=== PATIENT | male | born 1955 | race Caucasian/White ===

== ENCOUNTER 2016-10-28 18:14 | Emergency (ER) | payer OTHER ==
[~2016-10-28] VITALS: Ht 434.3 cm; Wt 83.9 kg
[~2016-10-28 18:14] MED LIST: AMLODIPINE BESY1 TAB PO; AMOXICILLIN500 MG PO; ANAPROX DS550 MG PO; AUGMENTIN 875875 MG PO; BACTRIM DS 8001 TA1 PO; CATAFLAM50 MG PO; CHOLESTEROL PO; FLEXERIL5 MG PO; FUROSEMIDE40 MG PO; HIGH BP MED; KEFLEX500 M1 PO; LANTUS100 U/ML SC; LEVOFLOXACIN500 MG PO; LISINOPRIL10 MG PO; LISINOPRIL20 MG PO; LOPRESSOR50 MG PO; METFORMIN1000 MG PO; METFORMIN500 MG PO; METOPROLOL SR50 MG PO; Motrin,Rufen800 MG PO; NAPROSYN500 MG PO; NKHM PO; NORCO 10-325 T1 EACH PO; NOVOLOG FLEX100 U/ML SC; PYRIDIUM200 M1 PO; SIMVASTATIN10 MG PO; ULTRAM50 MG PO
[2016-10-28] MEDS ORDERED: CYCLOBENZAPRINE10 MG PO (20:04)
[2016-10-28] MEDS ORDERED: NAPROSYN500 MG PO (20:04)
[2016-12-24] MEDS ORDERED: ASPIRIN CHILDRE81 MG PO (17:56)
[2016-12-24] MEDS ORDERED: CARVEDILOL12.5 MG PO (17:56)
[2016-12-24] MEDS ORDERED: PLAVIX75 M1 PO (17:57)
[2016-12-24] MEDS ORDERED: PRAVACHOL40 MG PO (17:58)
[2016-12-24] MEDS ORDERED: NOVOLIN R100 U/ML SC (17:59)
[2016-12-24] MEDS ORDERED: SANTYL250 U/GM T (18:00)
[2016-12-24] MEDS ORDERED: NOVOLOG FLEX100 U/ML SC (21:18)
== END 2016-10-28 22:44 | disposition home or self-care (01) ==
LOC: ED 18:14
DX: S40.011A Contusion of right shoulder, initial encounter (principal); Z79.4 Long term (current) use of insulin; Z90.49 Acquired absence of other specified parts of digestive tract; W18.09XA Striking against other object with subsequent fall, initial encounter; Y93.89 Activity, other specified; Y92.9 Unspecified place or not applicable; Y99.9 Unspecified external cause status

== ENCOUNTER 2016-11-05 07:12 | Inpatient (IN) | payer OTHER ==
[~2016-11-05] VITALS: Ht 180.3 cm; Wt 77.1 kg
[2016-11-05] VITALS (7 sets, daily range): BP systolic 143–200; BP diastolic 62–122
--- NOTE | ~2016-11-05 | CON ---
[place], [place] REPORT OF CONSULTATION NAME: MARIO ROBERT UNIT #: [id number] ROOM: 425 DOCTOR: YOUNG SONG MD, FACC BIRTHDATE: [birth year] DOS: 11/07/2016 CARDIOLOGY CONSULTATION IMPRESSION: Severe bilateral peripheral arterial disease with tissue damage with the wound on both feet and ischemic related. History of diabetes mellitus and foot infection, cellulitis, hypertension, hypertensive cardiovascular disease, and arthritis. PLAN: Aortobifemoral angiogram with distal runoff and with intervention, revascularization, and wound debridement and wound care. HISTORY OF PRESENT ILLNESS: The patient came through the emergency room for redness in the wounds in both lower extremities with edema and a lot of pain and this all happened recently. The patient has diabetes for several years, hypertension for several years. Initial troponins negative and CPK is abnormal, probably from the tissue damage. PHYSICAL EXAMINATION: EXTREMITIES: Diminished pulses in both pedal and posterior tibial. NECK: No jugular venous distention. LUNGS: No rales heard. HEART: S1 and S2. No gallops. ABDOMEN: Soft. NEUROLOGICAL: The patient is alert, responding well. Mental status normal. VITAL SIGNS: Blood pressure 155/62, heart rate is 75, afebrile. RECTAL: Deferred, unrelated. GENITAL: Deferred, unrelated. LABORATORY DATA: Potassium 3.3, treated with potassium supplements. Renal function is normal, GFR is normal, creatinine is normal. Hemoglobin is 12 and WBC count 11.7. ASSESSMENT AND PLAN: The patient has been on metformin, we will keep here for few days until this contrast and angiogram and the intervention. The patient is on amlodipine, we may change subsequently and continue the nasal insulin for controlling the diabetes. The patient will be on the statin, Plavix, and aspirin. I explained in detail options, procedures, complications, morbidity, mortality explained. The patient opted to go to [facility] for further management of this patient and he is a lot convenient for his family to come and see him. [place], [place] REPORT OF CONSULTATION NAME: MARIO ROBERT UNIT #: [id number] ROOM: 425 DOCTOR: YOUNG SONG MD, FACC BIRTHDATE: [birth year] YOUNG SONG MD CM:CONSTR:REPORT OF CONSULTATION 1648 12/27/16 0830 interface
--- NOTE | ~2016-11-05 | CON ---
[place], [place] REPORT OF CONSULTATION NAME: MARIO ROBERT [facility] #: [id number] UNIT #: [id number] ROOM: 425 DOCTOR: CRISTHIAN POST DPM BIRTHDATE: [birth year] DOS: 11/06/2016 SUBJECTIVE: The patient presents as a 61-year-old white male with complaint of redness and swelling to both feet. The patient has been having problems since 01/2015. PAST MEDICAL HISTORY: The patient has a past medical history of type 2 diabetes, hypertension, arthritis. PAST SURGICAL HISTORY: Amputation of finger, history of hernia repair. SOCIAL HISTORY: Denies alcohol, smoking, or illicit drug use. FAMILY HISTORY: Mother alive, age 80. Father at age 60 for unknown cause of . ALLERGIES: No known allergies. PHYSICAL EXAMINATION: EXTREMITIES: Lower extremity examination, pedal pulses nonpalpable bilateral. There is edema in bilateral foot. There are necrotic changes in bilateral foot with ulcerations with localized erythema and eschar, pregangrenous changes. There is purulent drainage under the loosened nail bed of the right hallux for which culture was ordered after removal of the nail plate which was performed at bedside. Decreased epicritic sensations bilateral. Decreased hair growth. Decreased skin temperature. DIAGNOSTIC DATA: Radiographs of bilateral foot were unremarkable. No signs of bone infection on the radiographs. The patient has pending MRI and arterial vascular to be performed. ASSESSMENT: Infected diabetic ulcers, bilateral foot, severe peripheral vascular disease, perionychia of first right toe, pregangrenous changes. PLAN: Evaluation and management. We removed the right hallux nail plate without any anesthesia due to neuropathy. Cultures were ordered of the drainage. The patient was going immediately for an arterial Doppler bilateral. Ordered Bactroban dressings to be applied to the ulcerations and right hallux daily. Discussed the case via telephone with Dr. Holden. Discussed with Dr. Holden that most likely the patient has severe vascular impairment and will need to be sent and transferred for vascular intervention. I do not believe the patient is a surgical candidate until vascular intervention is performed. We will see the results of the MRI, and if underlying signs of osteomyelitis are present, possible bone biopsy in the future, but in my opinion I think the patient is suffering from severe arterial insufficiency and needs vascular intervention as soon as possible along with continuing the IV antibiotics. Dr. Holden will see the patient tomorrow and review the test results if I do not receive them by the end of today. Thank you for kind consultation. [place], [place] REPORT OF CONSULTATION NAME: MARIO ROBERT UNIT #: [id number] ROOM: [facility] DOCTOR: CRISTHIAN POST DPM BIRTHDATE: [birth year] CRISTHIAN POST DPM CM:CONSTR:REPORT OF CONSULTATION 1216 11/07/16 0131 interface
--- NOTE | ~2016-11-05 | CON ---
[place], [place] REPORT OF CONSULTATION NAME: MARIO ROBERT [facility] #: [id number] UNIT #: [id number] ROOM: 425 DOCTOR: SHALONDA SCHMITT DPMBITA BIRTHDATE: [birth year] DOS: 11/07/2016 SUBJECTIVE: This patient is a 61-year-old male seen at bedside for followup and reevaluation of bilateral foot ulcerations and peripheral arterial disease. The patient had an MRI done yesterday, which showed acute osteomyelitis of the distal phalanx. No drainable abscess or fluid collection was shown. MRI is currently pending for the left foot. PHYSICAL EXAMINATION: VITAL SIGNS: Temperature 98.7, pulse rate is 70, respiratory rate of 18, blood pressure 136/72. VASCULAR: DP and PT pulses are nonpalpable. CFT appeared to be within normal limits, +1 pitting edema to bilateral lower extremities. DERMATOLOGIC: The patient has stable eschars to the distal tip of his right first and second digits as well as sub-fifth underneath the fifth metatarsal head bilateral as well as a stable healed decubitus ulcer noted on the left. He also has a sub-first metatarsal ulcer noted on the left foot. No signs of soft tissue emphysema. No soft tissue crepitation is noted. Mild periwound erythema is noted around his ulcerations. His right hallux nail has been removed as well. NEUROLOGIC: Decreased protective sensation. ORTHOPEDICS: Decreased muscle strength bilateral. Negative Homans', negative calf pain. IMAGING: As stated previously, MRI shows ulceration with acute osteomyelitis of the distal phalanx. Arterial ultrasound showed evidence of mild bilateral inflow disease and Doppler waveforms indicate severe bilateral distal atherosclerosis. Again, MRI is currently pending for the left foot. ASSESSMENT: 1. Diabetes with neuropathy. 2. Peripheral arterial disease. 3. Ulcerations to the bilateral feet. 4. Edema. TREATMENT PLANS AND RECOMMENDATIONS: Findings as well as prognosis was discussed in detail with the patient. All questions were answered to his apparent satisfaction. I spoke with the resident doctor under Dr. Vaughn earlier. He states that the patient is being transferred to [facility] for vascular assessment. There is no abscess right now that needs emergent I and D. The patient will most likely need thorough debridement of ulcerations as well as a possible partial distal amputation of his right hallux as well as debridement of his left foot ulceration in the near future once vascularly optimized. This was discussed in detail with the patient at the bedside. The patient notes understanding. Again, all questions were answered to his apparent satisfaction. We will continue with local wound care and followup with him once he has been revascularized. [place], [place] REPORT OF CONSULTATION NAME: MARIO ROBERT UNIT #: [id number] ROOM: 425 DOCTOR: BITA LIZ III, DPM BIRTHDATE: [birth year] BITA LIZ III, DPM CM:CONSTR:REPORT OF CONSULTATION 1216 11/08/16 0457 interface
[~2016-11-05 07:12] MED LIST changes: +CYCLOBENZAPRINE10 MG PO
[2016-11-05 08:48] LABS: BASO % 0.2 % (0.0-1.0); EOS # 0.1 10*3/uL (0.0-0.4); EOS % 0.3 % (1.0-4.0); HEMATOCRIT 43.5 % (42.0-52.0); HEMOGLOBIN 14.9 g/dl (14.0-18.0); IG # 0.1 10*3/uL (0.0-0.1); LYMPH # 0.9 10*3/uL (1.3-4.4); LYMPH % 4.9 % (27.0-41.0); MEAN CELL VOLUME 89.5 fl (80.0-94.0); MEAN CORPUSCULAR HGB 30.7 pg (27.0-31.0); MEAN CORPUSCULAR HGB CONC 34.3 g/dl (33.0-37.0); MEAN PLATELET VOLUME 11.7 fl (9.6-12.3); MONO # 0.9 10*3/uL (0.1-1.0); MONO % 4.9 % (3.0-9.0); NEUT # 16.3 10*3/uL (2.3-7.9); NEUT % 88.9 % (47.0-73.0); PLATELET COUNT AUTOMATED 353 10*3/uL (130-400); RED BLOOD COUNT 4.86 10*6/uL (4.50-5.90); RED CELL DISTRI WIDTH 11.9 % (0-14.5); WHITE BLOOD COUNT 18.3 10*3/uL (4.8-10.8)
[2016-11-05 09:23] LABS: BUN 9 mg/dl (7-24); CARBON DIOXIDE 28 mmol/L (21-32); CHLORIDE 96 mmol/L (98-107); EST GLOM FILT AFRICAN AMERICAN > 60 ml/min; GLUCOSE 347 mg/dL (65-99); POTASSIUM 4.1 mmol/L (3.5-5.1); SODIUM 137 mmol/L (136-145)
[2016-11-05 12:50] LABS: CPK 128 U/L (39-308)
[2016-11-05 12:54] LABS: CKMB 11.6 ng/ml (0.5-3.6); TROPONIN I < 0.015 ng/ml (<0.5)
[2016-11-05 19:07] LABS: TROPONIN I 0.016 ng/ml (<0.5)
[2016-11-05 19:14] LABS: CKMB 6.8 ng/ml (0.5-3.6)
[2016-11-06] VITALS: BP 118/61
[2016-11-06 00:30] LABS: BILIRUBIN NEGATIVE (NEGATIVE); BLOOD NEGATIVE (NEGATIVE); CLARITY CLEAR (CLEAR); COLOR YELLOW (YELLOW); GLUCOSE 3+ (NEGATIVE); KETONE 1+ (NEGATIVE); LEUKO ESTERASE NEGATIVE (NEGATIVE); NITRITE NEGATIVE (NEGATIVE); PH 6.5 (5.0-9.0); PROTEIN NEGATIVE (NEGATIVE)
[2016-11-06 00:36] LABS: YEAST TRACE
[2016-11-06 00:49] LABS: CKMB 4.4 ng/ml (0.5-3.6); TROPONIN I 0.015 ng/ml (<0.5)
[2016-11-06 08:03] VITALS: BP 138/64
[2016-11-06 08:14] LABS: BASO # 0.1 10*3/uL (0.0-0.1); BASO % 0.4 % (0.0-1.0); EOS # 0.1 10*3/uL (0.0-0.4); EOS % 0.9 % (1.0-4.0); HEMATOCRIT 34.6 % (42.0-52.0); HEMOGLOBIN 11.9 g/dl (14.0-18.0); IG # 0.1 10*3/uL (0.0-0.1); LYMPH # 1.1 10*3/uL (1.3-4.4); LYMPH % 7.5 % (27.0-41.0); MEAN CELL VOLUME 88.7 fl (80.0-94.0); MEAN CORPUSCULAR HGB 30.5 pg (27.0-31.0); MEAN CORPUSCULAR HGB CONC 34.4 g/dl (33.0-37.0); MEAN PLATELET VOLUME 10.8 fl (9.6-12.3); MONO # 1.3 10*3/uL (0.1-1.0); MONO % 8.7 % (3.0-9.0); NEUT # 11.7 10*3/uL (2.3-7.9); NEUT % 81.8 % (47.0-73.0); PLATELET COUNT AUTOMATED 259 10*3/uL (130-400); RED CELL DISTRI WIDTH 11.9 % (0-14.5); WHITE BLOOD COUNT 14.3 10*3/uL (4.8-10.8)
[2016-11-06 08:30] LABS: ALBUMIN 2.3 gm/dl (3.1-4.5); ALKALINE PHOSPHATASE 72 U/L (45-117); BILIRUBIN, TOTAL 0.4 mg/dl (0.2-1.0); BUN 7 mg/dl (7-24); CARBON DIOXIDE 24 mmol/L (21-32); CHLORIDE 108 mmol/L (98-107); EST GLOM FILT AFRICAN AMERICAN > 60 ml/min; GLUCOSE 94 mg/dL (65-99); MAGNESIUM 2.1 mg/dL (1.5-2.1); PHOSPHOROUS 2.4 mg/dL (2.5-4.9); POTASSIUM 3.6 mmol/L (3.5-5.1); SGOT/AST 11 IU/L (3-35); SGPT/ALT 14 U/L (12-78); SODIUM 140 mmol/L (136-145); TOTAL PROTEIN 5.9 gm/dL (6.4-8.2)
[2016-11-06 12:00] VITALS: BP 149/62
[2016-11-06 16:00] VITALS: BP 118/67
[2016-11-06 20:00] VITALS: BP 116/66
[2016-11-07] VITALS: BP 165/66
[2016-11-07 07:30] VITALS: BP 136/72
[2016-11-07 07:30] LABS: BASO # 0.1 10*3/uL (0.0-0.1); BASO % 0.6 % (0.0-1.0); EOS # 0.2 10*3/uL (0.0-0.4); EOS % 1.9 % (1.0-4.0); HEMATOCRIT 35.2 % (42.0-52.0); IG # 0.1 10*3/uL (0.0-0.1); LYMPH # 1.4 10*3/uL (1.3-4.4); LYMPH % 12.1 % (27.0-41.0); MEAN CELL VOLUME 88.9 fl (80.0-94.0); MEAN CORPUSCULAR HGB 30.3 pg (27.0-31.0); MEAN CORPUSCULAR HGB CONC 34.1 g/dl (33.0-37.0); MEAN PLATELET VOLUME 10.8 fl (9.6-12.3); MONO # 0.9 10*3/uL (0.1-1.0); MONO % 7.6 % (3.0-9.0); NEUT % 76.9 % (47.0-73.0); PLATELET COUNT AUTOMATED 261 10*3/uL (130-400); RED BLOOD COUNT 3.96 10*6/uL (4.50-5.90); RED CELL DISTRI WIDTH 11.8 % (0-14.5); WHITE BLOOD COUNT 11.7 10*3/uL (4.8-10.8)
[2016-11-07 08:08] LABS: BUN 7 mg/dl (7-24); CARBON DIOXIDE 24 mmol/L (21-32); CHLORIDE 108 mmol/L (98-107); EST GLOM FILT AFRICAN AMERICAN > 60 ml/min; GLUCOSE 80 mg/dL (65-99); POTASSIUM 3.3 mmol/L (3.5-5.1); SODIUM 142 mmol/L (136-145)
[2016-11-07 12:00] VITALS: BP 155/62
[2016-11-07 16:00] VITALS: BP 154/68
[2016-12-24] MEDS ORDERED: ASPIRIN CHILDRE81 MG PO (17:56)
[2016-12-24] MEDS ORDERED: CARVEDILOL12.5 MG PO (17:56)
[2016-12-24] MEDS ORDERED: PLAVIX75 M1 PO (17:57)
[2016-12-24] MEDS ORDERED: PRAVACHOL40 MG PO (17:58)
[2016-12-24] MEDS ORDERED: NOVOLIN R100 U/ML SC (17:59)
[2016-12-24] MEDS ORDERED: SANTYL250 U/GM T (18:00)
[2016-12-24] MEDS ORDERED: NOVOLOG FLEX100 U/ML SC (21:18)
== END 2016-11-07 19:01 | disposition short-term general hospital (02) | DRG 871 ==
LOC: ED 07:12 → EDHOLD 09:42 → 4E 09:42 → EDHOLD 10:00 → 4E 10:25
PROVIDERS: Emergency Medicine; Family Medicine; Internal Medicine
DX: A41.9 Sepsis, unspecified organism (principal); E43 Unspecified severe protein-calorie malnutrition; E11.52 Type 2 diabetes mellitus with diabetic peripheral angiopathy with gangrene; L03.116 Cellulitis of left lower limb; L03.115 Cellulitis of right lower limb; M86.171 Other acute osteomyelitis, right ankle and foot; E11.628 Type 2 diabetes mellitus with other skin complications; E11.65 Type 2 diabetes mellitus with hyperglycemia; I10 Essential (primary) hypertension; M19.90 Unspecified osteoarthritis, unspecified site; E11.69 Type 2 diabetes mellitus with other specified complication; B35.1 Tinea unguium; L03.031 Cellulitis of right toe; L97.529 Non-pressure chronic ulcer of other part of left foot with unspecified severity; L97.519 Non-pressure chronic ulcer of other part of right foot with unspecified severity; E11.40 Type 2 diabetes mellitus with diabetic neuropathy, unspecified; Z98.890 Other specified postprocedural states; Z89.029 Acquired absence of unspecified finger(s); Z79.899 Other long term (current) drug therapy; Z79.4 Long term (current) use of insulin; Z82.49 Family history of ischemic heart disease and other diseases of the circulatory system; Z83.3 Family history of diabetes mellitus; Z72.89 Other problems related to lifestyle; Z68.25 Body mass index [BMI] 25.0-25.9, adult

== ENCOUNTER 2017-01-14 10:45 | Inpatient (IN) | payer SELFPAY ==
[~2017-01-14] VITALS: Ht 180.3 cm; Wt 70.5 kg
--- NOTE | ~2017-01-14 | PR ---
[place], [place] PROGRESS NOTE [id number] UNIT #: [id number] ROOM: 410 DOCTOR: RODOLFO GROSSMAN DPM BIRTHDATE: [birth year] DOS: 01/18/2017 SUBJECTIVE: This patient is seen status post debridement, bone biopsy, left foot as well as repair of laceration, plantar left great toe. He has no complaints at this time. OBJECTIVE: Upon removal of the dressing and packing, the incision site is well coapted in the area of the laceration. Minimal edema, no erythema or drainage. The left heel area is clean and granular with no signs of purulent drainage or malodor. No significant erythema or increased temperature. ASSESSMENT: Status post laceration repair, left hallux and debridement and bone biopsy, left heel. PLAN: Packing and dressing is changed. Continue with current treatment plan of antibiotics and wound care. Followup tomorrow with Dr. Solano. RODOLFO GROSSMAN DPM CM:PNTRANS [id number] RODOLFO GROSSMAN DPM 01/19/17 0102 interface
--- NOTE | ~2017-01-14 | PR ---
[place], [place] PROGRESS NOTE [id number] UNIT #: [id number] ROOM: 410 DOCTOR: CRISTHIAN POST DPM BIRTHDATE: [birth year] DOS: 01/17/2017 SUBJECTIVE: The patient presents postop left foot. The patient is resting comfortably in bed without discomfort. OBJECTIVE: Upon removal of the dressing and packing, left foot, the incision site to the laceration site, plantar left hallux is well coapted with sutures intact. No signs of purulent drainage or foul odor. The left heel biopsy site packing was removed and there were no signs of purulent drainage or foul odor noted. The ulceration extends to the calcaneus. ASSESSMENT: Postop laceration primary repair, left hallux and debridement and bone biopsy, left heel. PLAN: Change dressing applied half inch plain packing with wet-to-dry dressing to the left heel and Xeroform with gauze dressing to the left hallux incision site. Orders were written to continue daily. The patient will be seen tomorrow for followup with Dr. Ledezma. Continue antibiotics per Infectious Disease. CRISTHIAN POST DPM CM:LASHAWN [id number] CRISTHIAN POST DPM 01/18/17 0232 interface
--- NOTE | ~2017-01-14 | CON ---
[place], [place] REPORT OF CONSULTATION NAME: MARIO ROBERT [facility] #: [id number] UNIT #: [id number] ROOM: 410 DOCTOR: CRISTHIAN POST DPM BIRTHDATE: [birth year] DOS: 01/15/2017 SUBJECTIVE: The patient is a 61-year-old male with a chief complaint of ulcerations of both feet and a laceration on the bottom of the left great toe. The patient was brought to the ED after suffering a fall. The patient has been in the [facility] for wound care and IV antibiotics. PAST MEDICAL HISTORY: Normocytic normochromic anemia, osteomyelitis, PVD. PAST SURGICAL HISTORY: Amputation of finger, hernia repair, periumbilical vascular dilatation. SOCIAL HISTORY: Denies smoking, alcohol, or illicit drug use. FAMILY HISTORY: Mother alive, history of diabetes, CAD, . Father unknown cause of at age 64, . PHYSICAL EXAMINATION: EXTREMITIES: Lower extremity examination: Pedal pulses diminished, but palpable. Decreased hair growth bilateral. There are ulcerations; fifth MPJ bilateral, plantar first right MPJ, and left heel. The ulceration lateral fifth left MPJ had previous apparent resection of the fifth metatarsal and it is granulating well, much improved from previous exam. The ulceration plantar first left MPJ is partial thickness. There is a large ulceration approximately 5 cm in diameter to the plantar left heel, which is full thickness through subcutaneous tissue level with localized erythema, no signs of purulent drainage. No signs of acute abscess. The ulceration may extend to bone. There is also a laceration approximately 2.5 cm in length to the plantar left great toe sulcus, is full thickness into the subcutaneous tissue level. Does not appear to have exposed tendon. No signs of infection to that area at this time. DIAGNOSTIC DATA: Results of the radiographs reveal the previously noted osteomyelitis fifth left metatarsal head being removed with bone resection osteotomy. There is erosion of the inferior surface of the calcaneus suggestive of osteomyelitis, which would clinically correlate with the patient's ulceration. ASSESSMENT: Probable osteomyelitis, left calcaneus; peripheral vascular disease; ulcerations; bilateral lower extremity laceration, left hallux. PLAN: Evaluation and management discussed the case with Infectious Disease. He was also in the room. Discussed the case via telephone with Dr. Holden. Reviewed the patient's previous medical records. The patient will be scheduled for repair of laceration of plantar left hallux and debridement of the left heel with bone biopsy, left calcaneus by Dr. Holden tomorrow. The patient will be n.p.o. after midnight, order Bactroban dressings to ulcerations of both lower extremities. We will hold the Lovenox for surgery for tomorrow and the patient will be seen for surgical intervention by Dr. Holden tomorrow. Continue antibiotics per Infectious Disease. [place], [place] REPORT OF CONSULTATION NAME: MARIO ROBERT Isaias UNIT #: [id number] ROOM: 410 DOCTOR: CRISTHIAN POST DPM BIRTHDATE: [birth year] CRISTHIAN POST DPM CM:CONSTR:REPORT OF CONSULTATION 1301 01/15/17 2235 interface
--- NOTE | ~2017-01-14 | O ---
[place], [place] OPERATIVE NOTE NAME: MARIO ROBERT UNIT #: [id number] ROOM: 410 DOCTOR: FORREST LIZ III, DPM BIRTHDATE: [birth year] DOS: 01/16/2017 TIME: 6 p.m. SURGEON: Dr. Forrest Liz. [employer]: None. ANESTHESIA: Monitored anesthesia care. PREOPERATIVE DIAGNOSES: 1. Laceration left great toe. 2. Osteomyelitis, left heel. POSTOPERATIVE DIAGNOSES: 1. Laceration left great toe. 2. Osteomyelitis, left heel. PROCEDURE: 1. Primary closure of laceration. 2. Bone debridement biopsy, left heel. HEMOSTASIS: None. ESTIMATED BLOOD LOSS: 10 mL. MATERIALS: Four inch packing was applied to the wound to the heel at the conclusion of the case. INJECTABLES: Approximately 10 mL and 0.5% Marcaine plain was injected in an angle block type fashion at the conclusion of the case. FINDINGS: Consistent with preoperative diagnosis. The patient had an inferior heel wound that probed directly to bone. Mobilized necrotic tissue was debrided and removed. Bone was debrided and biopsied. He also had a deep laceration to the sulcus of the first digit plantarly. This was closed primarily after irrigation was performed. Findings consistent with preoperative diagnosis. COMPLICATIONS: None. HISTORY OF PRESENT ILLNESS: This is a middle-aged male well-known to us on previous admission. He presented to the Emergency Room with necrotic heel wound as well as a laceration to his left great toe. The patient was unsure of laceration occurred. The patient has had a heel laceration for some time. They treated in outpatient setting with IV antibiotics and was most recently revascularized ____. We discussed the options with the patient. They felt that it was in the patient's best interest to debride his calcaneal wound and take cultures as well as biopsies in order to guide antibiotic therapy. It was also appropriate to irrigate and flush and close this laceration. The patient was in agreement with plan. All risks, benefits, complications, procedures, [place], [place] OPERATIVE NOTE NAME: MARIO ROBERT UNIT #: [id number] ROOM: 410 DOCTOR: FORREST LIZ III, DPM BIRTHDATE: [birth year] alternatives were discussed and all questions were answered to his apparent satisfaction. The pre, debbi, postoperative course was discussed as well. PHYSICAL EXAMINATION: VASCULAR: DP and PT pulses are barely palpable, CFT within normal limits, mild edema to the inferior heel and left great toe. DERMATOLOGY: The patient has a full-thickness laceration appreciated into the sulcus of his first digit plantarly. Full-thickness ____ subcutaneous tissue. There is sign of infection to the laceration. He has a full-thickness wound appreciated to the plantar aspect of his left heel and it probed directly to bone. Localized necrotic tissue is appreciated. NEUROLOGIC: Decreased protective sensation. ORTHOPEDIC: Muscle strength is maintained. Negative Homans', negative calf pain. PROCEDURE: The patient was brought to the operating room, laid on table in the supine position, but was prepped and draped in the usual sterile fashion. Pneumatic compression device was placed on the contralateral limb for DVT prophylaxis. Antibiotics were administered. The patient was on antibiotics on the floor, therefore no antibiotics were administered preoperatively. Our attention was directed to the laceration in the plantar sulcus of his left great toe, where again a full-thickness wound was appreciated and extended to and through subcutaneous tissue. Localized debridement was performed. Wound margins were well approximated once the wound was debrided. Copious irrigation was performed and then the wound margin was reapproximated with 2-0 nylon in a horizontal mattress type fashion. There was minimal tension on the soft tissues. We then directed our attention to the inferior aspect of the left heel where again a necrotic heel wound was appreciated. It probed directly to bone. Deep soft tissue cultures were obtained. Bone was also debrided and biopsied from the anterior heel corresponding with osteomyelitic changes on x-ray exam. Copious irrigation was then performed. The wound was then packed open and a dry dressing now was then applied. Ankle block was performed and approximately 10 mL of 0.5% Marcaine plain. The patient tolerated the procedure well and left the operating room with neurovascular status intact and vital signs stable. Prognosis for healing is fair. He will be readmitted back to the floor for Infectious Disease as well as Medicine followup. [place], [place] OPERATIVE NOTE NAME: JAKOBMARIO R UNIT #: [id number] ROOM: [facility] DOCTOR: FORREST LIZ III, DPM BIRTHDATE: [birth year] FORREST LIZ III, DPM CM:OPRECORD:OPERATIVE NOTE 1804 25 FORREST LIZ III, DPM 01/16/17 2346 interface
[~2017-01-14 10:45] MED LIST changes: +ASPIRIN CHILDRE81 MG PO; +CARVEDILOL12.5 MG PO; +NOVOLIN R100 U/ML SC; +PLAVIX75 M1 PO; +PRAVACHOL40 MG PO; +SANTYL250 U/GM T
[2017-01-14 10:59] VITALS: BP 168/79
[2017-01-14 11:50] LABS: BASO # 0.1 10*3/uL (0.0-0.1); BASO % 0.6 % (0.0-1.0); EOS # 0.1 10*3/uL (0.0-0.4); EOS % 0.6 % (1.0-4.0); HEMATOCRIT 36.8 % (42.0-52.0); HEMOGLOBIN 12.2 g/dl (14.0-18.0); LYMPH # 1.4 10*3/uL (1.3-4.4); LYMPH % 12.7 % (27.0-41.0); MEAN CELL VOLUME 85.8 fl (80.0-94.0); MEAN CORPUSCULAR HGB 28.4 pg (27.0-31.0); MEAN CORPUSCULAR HGB CONC 33.2 g/dl (33.0-37.0); MEAN PLATELET VOLUME 11.2 fl (9.6-12.3); MONO # 0.5 10*3/uL (0.1-1.0); MONO % 4.9 % (3.0-9.0); NEUT % 80.9 % (47.0-73.0); PLATELET COUNT AUTOMATED 325 10*3/uL (130-400); RED BLOOD COUNT 4.29 10*6/uL (4.50-5.90); RED CELL DISTRI WIDTH 13.7 % (0-14.5); WHITE BLOOD COUNT 11.1 10*3/uL (4.8-10.8)
[2017-01-14 12:06] LABS: ALBUMIN 3.5 gm/dl (3.1-4.5); ALKALINE PHOSPHATASE 81 U/L (45-117); BILIRUBIN, TOTAL 0.5 mg/dl (0.2-1.0); BUN 24 mg/dl (7-24); CARBON DIOXIDE 21 mmol/L (21-32); CHLORIDE 101 mmol/L (98-107); EST GLOM FILT AFRICAN AMERICAN > 60 ml/min; GLUCOSE 144 mg/dL (65-99); POTASSIUM 4.1 mmol/L (3.5-5.1); SGOT/AST 12 IU/L (3-35); SGPT/ALT 14 U/L (12-78); SODIUM 140 mmol/L (136-145)
[2017-01-14] MEDS ORDERED: DULCOLAX10 M1 RC (12:54)
[2017-01-14] MEDS ORDERED: GLUTOSE 1515 GM PO (12:55)
[2017-01-14] MEDS ORDERED: ZOFRAN4 MG PO (12:57)
[2017-01-14] MEDS ORDERED: MILK OF MA400 MG/5 M PO (12:57)
[2017-01-14 13:18] VITALS: BP 161/87
[2017-01-14 15:00] VITALS: BP 168/78
[2017-01-14 16:00] VITALS: BP 168/78
[2017-01-14 20:00] VITALS: BP 154/64
[2017-01-15] VITALS: BP 150/80
[2017-01-15 01:51] LABS: BILIRUBIN 1+ (NEGATIVE); BLOOD NEGATIVE (NEGATIVE); CLARITY CLEAR (CLEAR); COLOR YELLOW (YELLOW); GLUCOSE NEGATIVE (NEGATIVE); KETONE 2+ (NEGATIVE); LEUKO ESTERASE NEGATIVE (NEGATIVE); NITRITE NEGATIVE (NEGATIVE); PH 5.5 (5.0-9.0); PROTEIN TRACE (NEGATIVE); SPECIFIC GRAVITY >= 1.030 (1.005-1.030); UROBILINOGEN 0.2 E.U./dl (0.2-1.0)
[2017-01-15 02:05] LABS: HYALINE CAST 20-25; URINE REFLEX COMMENT NO (NO); WBC 0-2 wbc/hpf (0-5)
[2017-01-15 06:37] LABS: BASO # 0.1 10*3/uL (0.0-0.1); BASO % 0.6 % (0.0-1.0); EOS # 0.1 10*3/uL (0.0-0.4); EOS % 1.2 % (1.0-4.0); HEMATOCRIT 32.9 % (42.0-52.0); HEMOGLOBIN 10.7 g/dl (14.0-18.0); IG # 0.1 10*3/uL (0.0-0.1); LYMPH # 1.1 10*3/uL (1.3-4.4); LYMPH % 10.6 % (27.0-41.0); MEAN CELL VOLUME 86.6 fl (80.0-94.0); MEAN CORPUSCULAR HGB 28.2 pg (27.0-31.0); MEAN CORPUSCULAR HGB CONC 32.5 g/dl (33.0-37.0); MEAN PLATELET VOLUME 10.9 fl (9.6-12.3); MONO # 0.9 10*3/uL (0.1-1.0); MONO % 8.1 % (3.0-9.0); NEUT # 8.4 10*3/uL (2.3-7.9); PLATELET COUNT AUTOMATED 307 10*3/uL (130-400); RED CELL DISTRI WIDTH 13.8 % (0-14.5); WHITE BLOOD COUNT 10.7 10*3/uL (4.8-10.8)
[2017-01-15 07:01] LABS: HEMOGLOBIN A1c 6.4 % (4.8-5.6)
[2017-01-15 07:16] LABS: FOLIC ACID 4.27 ng/mL (>5.38)
[2017-01-15 07:20] LABS: INTERNATIONAL NORM RATIO 1.1 (2.0-3.5); PROTHROMBIN TIME 11.4 SECONDS (9.0-12.4)
[2017-01-15 07:30] LABS: ALBUMIN 3.2 gm/dl (3.1-4.5); ALKALINE PHOSPHATASE 68 U/L (45-117); BILIRUBIN, TOTAL 0.4 mg/dl (0.2-1.0); BUN 17 mg/dl (7-24); CARBON DIOXIDE 27 mmol/L (21-32); CHLORIDE 110 mmol/L (98-107); CHOLESTEROL 98 mg/dL (<200); EST GLOM FILT AFRICAN AMERICAN > 60 ml/min; HDL CHOLESTEROL 44 mg/dl (40-60); LDL CHOLESTEROL 36 mg/dL (9-159); MAGNESIUM 2.2 mg/dL (1.5-2.1); POTASSIUM 3.5 mmol/L (3.5-5.1); SGOT/AST 8 IU/L (3-35); SGPT/ALT 15 U/L (12-78); SODIUM 146 mmol/L (136-145); TRIGLYCERIDES 91 mg/dl (<150); VLDL CHOLESTEROL 18 mg/dL (6-40)
[2017-01-15 07:38] LABS: GLUCOSE 44 mg/dL (65-99)
[2017-01-15 08:00] VITALS: BP 190/76
[2017-01-15 16:00] VITALS: BP 194/91
[2017-01-15 20:00] VITALS: BP 152/63
[2017-01-16] VITALS (13 sets, daily range): BP systolic 89–190; BP diastolic 43–90
[2017-01-16 07:25] LABS: BASO # 0.1 10*3/uL (0.0-0.1); BASO % 0.6 % (0.0-1.0); EOS # 0.2 10*3/uL (0.0-0.4); EOS % 2.3 % (1.0-4.0); HEMATOCRIT 31.5 % (42.0-52.0); HEMOGLOBIN 10.1 g/dl (14.0-18.0); LYMPH # 1.3 10*3/uL (1.3-4.4); LYMPH % 16.9 % (27.0-41.0); MEAN CELL VOLUME 87.3 fl (80.0-94.0); MEAN CORPUSCULAR HGB CONC 32.1 g/dl (33.0-37.0); MONO # 0.6 10*3/uL (0.1-1.0); MONO % 8.2 % (3.0-9.0); NEUT # 5.5 10*3/uL (2.3-7.9); NEUT % 71.6 % (47.0-73.0); PLATELET COUNT AUTOMATED 242 10*3/uL (130-400); RED BLOOD COUNT 3.61 10*6/uL (4.50-5.90); RED CELL DISTRI WIDTH 13.8 % (0-14.5); WHITE BLOOD COUNT 7.7 10*3/uL (4.8-10.8)
[2017-01-16 07:32] LABS: BUN 11 mg/dl (7-24); CARBON DIOXIDE 24 mmol/L (21-32); CHLORIDE 112 mmol/L (98-107); EST GLOM FILT AFRICAN AMERICAN > 60 ml/min; GLUCOSE 83 mg/dL (65-99); POTASSIUM 3.3 mmol/L (3.5-5.1); SODIUM 147 mmol/L (136-145)
[2017-01-17] VITALS: BP 144/56
[2017-01-17 07:31] LABS: BUN 8 mg/dl (7-24); CARBON DIOXIDE 24 mmol/L (21-32); CHLORIDE 110 mmol/L (98-107); GLUCOSE 88 mg/dL (65-99); POTASSIUM 3.7 mmol/L (3.5-5.1); SODIUM 144 mmol/L (136-145)
[2017-01-17 07:33] LABS: EST GLOM FILT AFRICAN AMERICAN > 60 ml/min
[2017-01-17 08:00] VITALS: BP 166/75
[2017-01-17 12:00] VITALS: BP 170/69
[2017-01-17 16:00] VITALS: BP 194/86
[2017-01-17 20:43] VITALS: BP 192/82
[2017-01-18] VITALS: BP 157/75
[2017-01-18 08:00] VITALS: BP 136/88
[2017-01-18 12:00] VITALS: BP 108/55
[2017-01-18] MEDS ORDERED: AMLODIPINE BESYL5 MG PO (14:29)
[2017-01-18] MEDS ORDERED: LAMISIL250 MG PO (14:29)
[2017-01-18] MEDS ORDERED: LISINOPRIL10 M1 PO (14:29)
[2017-01-18] MEDS ORDERED: CIPRO500 MG PO (14:53)
== END 2017-01-18 17:37 | disposition other institution (70) | DRG 629 ==
LOC: ED 10:45 → EDHOLD 14:21 → 4E 14:21
PROVIDERS: Emergency Medicine; Internal Medicine; Podiatrist Foot & Ankle Surgery; Student in an Organized Health Care Education/Training Program
PROC: 0HQNXZZ Repair Left Foot Skin, External Approach (ICD-10-PCS; principal; 2017-01-16)
PROC: 0QBM0ZZ Excision of Left Tarsal, Open Approach (ICD-10-PCS; principal; 2017-01-16)
DX: E11.69 Type 2 diabetes mellitus with other specified complication (principal); M86.172 Other acute osteomyelitis, left ankle and foot; N17.0 Acute kidney failure with tubular necrosis; E11.621 Type 2 diabetes mellitus with foot ulcer; E87.0 Hyperosmolality and hypernatremia; I10 Essential (primary) hypertension; D64.9 Anemia, unspecified; B35.1 Tinea unguium; L97.424 Non-pressure chronic ulcer of left heel and midfoot with necrosis of bone; E11.51 Type 2 diabetes mellitus with diabetic peripheral angiopathy without gangrene; M19.90 Unspecified osteoarthritis, unspecified site; E87.6 Hypokalemia; E55.9 Vitamin D deficiency, unspecified; E53.8 Deficiency of other specified B group vitamins; E83.39 Other disorders of phosphorus metabolism; E83.41 Hypermagnesemia; S91.112A Laceration without foreign body of left great toe without damage to nail, initial encounter; W19.XXXA Unspecified fall, initial encounter; Y93.89 Activity, other specified; Z79.4 Long term (current) use of insulin; Z79.82 Long term (current) use of aspirin; Z79.02 Long term (current) use of antithrombotics/antiplatelets; Z79.899 Other long term (current) drug therapy; Y92.89 Other specified places as the place of occurrence of the external cause; Y99.8 Other external cause status; Z82.49 Family history of ischemic heart disease and other diseases of the circulatory system; Z83.3 Family history of diabetes mellitus

== ENCOUNTER 2017-01-20 08:47 | Inpatient (IN) | payer SELFPAY ==
[~2017-01-20] VITALS: Ht 180.3 cm; Wt 74.0 kg
[~2017-01-20 08:47] MED LIST changes: +AMLODIPINE BESYL5 MG PO; +CIPRO500 MG PO; +DULCOLAX10 M1 RC; +GLUTOSE 1515 GM PO; +LAMISIL250 MG PO; +LISINOPRIL10 M1 PO; +MILK OF MA400 MG/5 M PO; +ZOFRAN4 MG PO
[2017-01-20 08:51] VITALS: BP 121/70
[2017-01-20] MEDS ORDERED: LAMISIL250 MG PO (09:06)
[2017-01-20 09:29] LABS: BASO # 0.1 10*3/uL (0.0-0.1); BASO % 0.6 % (0.0-1.0); EOS # 0.2 10*3/uL (0.0-0.4); EOS % 1.9 % (1.0-4.0); HEMATOCRIT 30.7 % (42.0-52.0); HEMOGLOBIN 10.2 g/dl (14.0-18.0); LYMPH # 1.2 10*3/uL (1.3-4.4); LYMPH % 12.3 % (27.0-41.0); MEAN CELL VOLUME 85.8 fl (80.0-94.0); MEAN CORPUSCULAR HGB 28.5 pg (27.0-31.0); MEAN CORPUSCULAR HGB CONC 33.2 g/dl (33.0-37.0); MEAN PLATELET VOLUME 11.3 fl (9.6-12.3); MONO # 0.5 10*3/uL (0.1-1.0); MONO % 4.8 % (3.0-9.0); NEUT # 7.9 10*3/uL (2.3-7.9); PLATELET COUNT AUTOMATED 248 10*3/uL (130-400); RED BLOOD COUNT 3.58 10*6/uL (4.50-5.90); RED CELL DISTRI WIDTH 13.9 % (0-14.5); WHITE BLOOD COUNT 9.9 10*3/uL (4.8-10.8)
[2017-01-20 09:38] LABS: INTERNATIONAL NORM RATIO 1.1 (2.0-3.5); PROTHROMBIN TIME 11.8 SECONDS (9.0-12.4)
[2017-01-20 09:45] LABS: ALBUMIN 2.7 gm/dl (3.1-4.5); ALKALINE PHOSPHATASE 63 U/L (45-117); BILIRUBIN, TOTAL 0.4 mg/dl (0.2-1.0); BUN 9 mg/dl (7-24); C-REACTIVE PROTEIN 0.88 MG/DL (0-0.3); CARBON DIOXIDE 28 mmol/L (21-32); CHLORIDE 104 mmol/L (98-107); CKMB 2.1 ng/ml (0.5-3.6); CPK 38 U/L (39-308); EST GLOM FILT AFRICAN AMERICAN > 60 ml/min; GLUCOSE 135 mg/dL (65-99); MAGNESIUM 1.8 mg/dL (1.5-2.1); POTASSIUM 3.5 mmol/L (3.5-5.1); SGOT/AST 10 IU/L (3-35); SGPT/ALT 11 U/L (12-78); SODIUM 140 mmol/L (136-145); TOTAL PROTEIN 6.6 gm/dL (6.4-8.2)
[2017-01-20 09:47] LABS: TROPONIN I < 0.015 ng/ml (<0.045)
[2017-01-20 10:30] VITALS: BP 124/61
[2017-01-20] MEDS ORDERED: NOVOLOG FLEX100 U/ML SQ (11:39)
[2017-01-20] MEDS ORDERED: LISINOPRIL10 M1 PO (11:40)
[2017-01-20] MEDS ORDERED: LANTUS100 U/ML SC (11:40)
[2017-01-20 12:00] VITALS: BP 161/82
[2017-01-20 13:24] LABS: CKMB 2.3 ng/ml (0.5-3.6); CPK 44 U/L (39-308); TROPONIN I < 0.015 ng/ml (<0.045)
[2017-01-20 16:00] VITALS: BP 156/66
[2017-01-20 17:08] LABS: BILIRUBIN NEGATIVE (NEGATIVE); BLOOD NEGATIVE (NEGATIVE); CLARITY CLEAR (CLEAR); COLOR YELLOW (YELLOW); GLUCOSE NEGATIVE (NEGATIVE); KETONE 1+ (NEGATIVE); LEUKO ESTERASE NEGATIVE (NEGATIVE); NITRITE NEGATIVE (NEGATIVE); PH 5.5 (5.0-9.0); PROTEIN NEGATIVE (NEGATIVE); UROBILINOGEN 0.2 E.U./dl (0.2-1.0)
[2017-01-20 17:28] LABS: BACTERIA TRACE; HYALINE CAST 0-2; RBC 0-2 rbc/hpf (0-2); URINE REFLEX COMMENT NO (NO)
[2017-01-20 18:26] LABS: CKMB 2.6 ng/ml (0.5-3.6); CPK 49 U/L (39-308); TROPONIN I < 0.015 ng/ml (<0.045)
[2017-01-20 20:00] VITALS: BP 163/86
[2017-01-21] VITALS: BP 148/60
[2017-01-21 00:56] LABS: CKMB 2.1 ng/ml (0.5-3.6); TROPONIN I 0.016 ng/ml (<0.045)
[2017-01-21 06:32] LABS: BASO % 0.5 % (0.0-1.0); EOS # 0.1 10*3/uL (0.0-0.4); EOS % 1.6 % (1.0-4.0); HEMATOCRIT 28.4 % (42.0-52.0); HEMOGLOBIN 9.2 g/dl (14.0-18.0); LYMPH # 1.4 10*3/uL (1.3-4.4); LYMPH % 18.7 % (27.0-41.0); MEAN CELL VOLUME 87.9 fl (80.0-94.0); MEAN CORPUSCULAR HGB 28.5 pg (27.0-31.0); MEAN CORPUSCULAR HGB CONC 32.4 g/dl (33.0-37.0); MEAN PLATELET VOLUME 10.7 fl (9.6-12.3); MONO # 0.4 10*3/uL (0.1-1.0); MONO % 5.6 % (3.0-9.0); NEUT # 5.4 10*3/uL (2.3-7.9); NEUT % 73.2 % (47.0-73.0); PLATELET COUNT AUTOMATED 239 10*3/uL (130-400); RED BLOOD COUNT 3.23 10*6/uL (4.50-5.90); RED CELL DISTRI WIDTH 14.1 % (0-14.5); WHITE BLOOD COUNT 7.3 10*3/uL (4.8-10.8)
[2017-01-21 06:55] LABS: ALBUMIN 2.7 gm/dl (3.1-4.5); ALKALINE PHOSPHATASE 62 U/L (45-117); BILIRUBIN, TOTAL 0.4 mg/dl (0.2-1.0); BUN 7 mg/dl (7-24); CARBON DIOXIDE 24 mmol/L (21-32); CHLORIDE 108 mmol/L (98-107); EST GLOM FILT AFRICAN AMERICAN > 60 ml/min; FREE T4 1.22 ng/dl (0.76-1.46); GLUCOSE 70 mg/dL (65-99); INTERNATIONAL NORM RATIO 1.1 (2.0-3.5); MAGNESIUM 1.8 mg/dL (1.5-2.1); PHOSPHOROUS 2.7 mg/dL (2.5-4.9); POTASSIUM 3.4 mmol/L (3.5-5.1); PROTHROMBIN TIME 11.7 SECONDS (9.0-12.4); SGOT/AST 11 IU/L (3-35); SGPT/ALT 9 U/L (12-78); SODIUM 143 mmol/L (136-145); TOTAL PROTEIN 6.3 gm/dL (6.4-8.2)
[2017-01-21 07:29] LABS: FOLIC ACID 6.98 ng/mL (>5.38)
[2017-01-21 08:00] VITALS: BP 128/60
[2017-01-21 11:02] LABS: VITAMIN D, 25-HYDROXY 12.3 ng/mL (30-100)
[2017-01-21 12:00] VITALS: BP 168/66
== END 2017-01-21 14:43 | DRG 391 ==
LOC: ED 08:47 → EDHOLD 10:27 → 4E 11:08
PROVIDERS: Emergency Medicine; Internal Medicine
DX: R11.2 Nausea with vomiting, unspecified (principal); E43 Unspecified severe protein-calorie malnutrition; E11.51 Type 2 diabetes mellitus with diabetic peripheral angiopathy without gangrene; M86.9 Osteomyelitis, unspecified; L97.429 Non-pressure chronic ulcer of left heel and midfoot with unspecified severity; R10.9 Unspecified abdominal pain; B35.1 Tinea unguium; E55.9 Vitamin D deficiency, unspecified; E53.8 Deficiency of other specified B group vitamins; M19.90 Unspecified osteoarthritis, unspecified site; I10 Essential (primary) hypertension; Z89.029 Acquired absence of unspecified finger(s); Z83.3 Family history of diabetes mellitus; Z82.49 Family history of ischemic heart disease and other diseases of the circulatory system; Z90.49 Acquired absence of other specified parts of digestive tract; Z79.82 Long term (current) use of aspirin; Z79.2 Long term (current) use of antibiotics; Z79.4 Long term (current) use of insulin; Z79.84 Long term (current) use of oral hypoglycemic drugs; Z79.899 Other long term (current) drug therapy; Z68.21 Body mass index [BMI] 21.0-21.9, adult

== ENCOUNTER 2017-02-14 14:12 | Inpatient (IN) | payer OTHER ==
[~2017-02-14] VITALS: Ht 180.3 cm; Wt 64.5 kg
--- NOTE | ~2017-02-14 | CON ---
[place], [place] REPORT OF CONSULTATION NAME: MARIO ROBERT UNIT #: [id number] ROOM: 407 DOCTOR: FELICIA BENDER MD BIRTHDATE: [birth year] DOS: 02/15/2017 PSYCHIATRIC CONSULT CHIEF COMPLAINT: "I didn't sleep well and I don't feel hungry." HISTORY OF PRESENT ILLNESS: This is a 61-year-old white male who was admitted due to severe dehydration due to significant vomiting. The patient's family members called the EMS stating that the patient has been vomiting for the past several days and unable to keep food down. When EMS arrived at the home, the patient was lying face down on the porch and was so weak he was unable to get up on his own. The patient has not been taking any food, fluids or medications for the last several days. He was admitted in October for similar symptoms and placed in a correction for rehabilitation to grow stronger, but subsequently signed himself out. The patient has been deteriorating since he has been home. The patient has lost 36 pounds since October. He does have a history of hypertension and diabetes. MENTAL STATUS EXAMINATION: He is alert and oriented with time gaps. He is a poor historian. 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 He also endorses lack of appetite. He does seem flat and blunted. He denies depression; however, but he does seem to be minimizing. There is no perla or hypomania. There are no gross psychotic symptoms. Short term memory has some gaps. DIAGNOSIS: Major depression, recurrent. PLAN: I will start him on Remeron 15 mg at bedtime. This should dramatically improved sleep and appetite. It also has antinausea and vomiting affect, so it should help the physical symptoms as well. I did not discuss with him the possibility of going to the [facility]. He certainly could benefit from further stabilization. I have no grounds however, to force him there if he chooses not to. FELICIA BENDER MD CM:CONSTR:REPORT OF CONSULTATION 0851 02/16/17 0018 interface
--- NOTE | ~2017-02-14 | CON ---
[place], [place] REPORT OF CONSULTATION NAME: MARIO ROBERT UNIT #: [id number] ROOM: 407 DOCTOR: NGOC HEDRICKRODOLFO BIRTHDATE: [birth year] DOS: 02/18/2017 SUBJECTIVE: This patient is seen as consult for evaluation of a sutured wound, left great toe. The patient had surgery a little more than 4 weeks ago for repair of laceration and debridement of an ulcer. The patient was admitted with the dehydration, vomiting and general weakness. He has some GI issues going on. The patient has no complaints regarding his feet, but he is a poor historian. PAST MEDICAL HISTORY: Positive for normocytic anemia, arthritis, history of diabetic foot infection with ulceration, folate deficiency, hypertension, insulin-dependent diabetes mellitus, history of osteomyelitis, left foot; history of PAD, protein malnutrition, vitamin D deficiency. ALLERGIES: No known drug allergies. CURRENT MEDICATIONS: Include potassium, Lopressor, Flagyl, Cipro, Reglan, Humalog, Protonix, Zocor, Levemir, Remeron, Lamisil, Zestril, Plavix, Norvasc, Coreg. PHYSICAL EXAMINATION: Upon lower extremity physical examination, pedal pulses are mildly decreased. Skin temperature is warm bilaterally. CFT is 2 seconds to all digits. Sensation is diminished bilaterally. The plantar of left great toe and the sulcus has a sutured incision noted that is well healed. There is no edema or erythema, no drainage or malodor, no signs of infection. Previous large left heel wound is dry and just about to heal at this time. Again, there is no drainage or surrounding edema or erythema. No signs of infection, multiple superficial abrasions are seen in both feet. They are all clean with no signs of cellulitis or infection. ASSESSMENT: Status post surgery left foot, history of diabetic foot infection, diabetic neuropathy, and superficial ulcers bilaterally. PLAN: Consult is performed. It is okay to remove the sutures from the incision of the left great toe plantarly, Betadine and just dry protective dressing to the superficial wounds. Wounds are healing well. No signs of infection. Continue offloading and wound care. Thanks for the opportunity to take part in the care of this patient. [place], [place] REPORT OF CONSULTATION NAME: MARIO ROBERT Isaias UNIT #: [id number] ROOM: [facility] DOCTOR: RODOLFO GROSSMAN DPM BIRTHDATE: [birth year] RODOLFO GROSSMAN DPM CM:CONSTR:REPORT OF CONSULTATION 1142 02/19/17 0443 interface
--- NOTE | ~2017-02-14 | O ---
[place], [place] OPERATIVE NOTE NAME: MARIO ROBERT UNIT #: [id number] ROOM: 407 DOCTOR: EDDIE ALVAREZ MD BIRTHDATE: [birth year] DOS: 02/15/2017 The patient has presented with chief complaint of GI bleed, undergoing investigation. The patient with history of being on clopidogrel and aspirin amongst other medications. Data reviewed. Records reviewed. PAST MEDICAL HISTORY: Diabetes, hypertension, diabetic foot. Infection, osteomyelitis of left foot all has been recognized. PAST SURGICAL HISTORY: Amputation of finger, hiatal hernia. PROCEDURE: Today's procedure part of investigation is panendoscopy plus biopsy and photographic series. PREMEDICATION: Versed and Diprivan. SCOPE: Olympus forward-viewing gastroscope Q10 video. REPORT: After putting the patient in the left lateral position and after application of lubricant to the scope, the scope was introduced. Thereafter, under direct visualization, I advanced through the length of the esophagus without difficulty. Multiple reflux esophageal ulcers in the linear form, which is extending from esophagogastric junction all the way to thoracic esophagus was noticed. Small hiatal hernia noticed while reflux gastritis identified. Gastritis was seen. Antrum was biopsied. Duodenal bulb, second and third part within normal limits. The patient extubated, tolerated procedure well. IMPRESSION: Gastritis, hiatal hernia, esophageal ulcers secondary to reflux. PLAN AND DISCUSSION: Addition of Reglan 5 mg, Protonix 40 mg IV b.i.d., Gaviscon 1 p.c. breakfast 1 at bedtime, all is going to be placed on order and supportive management. Rectal examination of the patient shows the large volume of retained stool therefore no colonoscopy was attempted. [place], [place] OPERATIVE NOTE NAME: MARIO ROBERT UNIT #: [id number] ROOM: 407 DOCTOR: EDDIE ALVAREZ MD BIRTHDATE: [birth year] EDDIE ALVAREZ MD CM:OPRECORD:OPERATIVE NOTE 231 EDDIE ALVAREZ MD 02/16/17 0605 interface
[2017-02-14 14:12] VITALS: BP 175/114
[~2017-02-14 14:12] MED LIST changes: +NOVOLOG FLEX100 U/ML SQ
[2017-02-14 14:52] LABS: BASO # 0.1 10*3/uL (0.0-0.1); BASO % 0.5 % (0.0-1.0); EOS % 0.1 % (1.0-4.0); HEMATOCRIT 35.4 % (42.0-52.0); HEMOGLOBIN 11.9 g/dl (14.0-18.0); LYMPH % 9.9 % (27.0-41.0); MEAN CELL VOLUME 85.5 fl (80.0-94.0); MEAN CORPUSCULAR HGB 28.7 pg (27.0-31.0); MEAN CORPUSCULAR HGB CONC 33.6 g/dl (33.0-37.0); MEAN PLATELET VOLUME 11.1 fl (9.6-12.3); MONO # 0.4 10*3/uL (0.1-1.0); NEUT # 8.2 10*3/uL (2.3-7.9); NEUT % 85.3 % (47.0-73.0); PLATELET COUNT AUTOMATED 313 10*3/uL (130-400); RED BLOOD COUNT 4.14 10*6/uL (4.50-5.90); WHITE BLOOD COUNT 9.7 10*3/uL (4.8-10.8)
[2017-02-14 15:11] LABS: ALBUMIN 3.3 gm/dl (3.1-4.5); ALKALINE PHOSPHATASE 77 U/L (45-117); BILIRUBIN, TOTAL 0.5 mg/dl (0.2-1.0); BUN 21 mg/dl (7-24); CARBON DIOXIDE 25 mmol/L (21-32); CPK 32 U/L (39-308); EST GLOM FILT AFRICAN AMERICAN > 60 ml/min; GLUCOSE 182 mg/dL (65-99); SGOT/AST 9 IU/L (3-35); SGPT/ALT 13 U/L (12-78)
[2017-02-14 15:15] LABS: CHLORIDE 104 mmol/L (98-107); POTASSIUM 4.1 mmol/L (3.5-5.1); SODIUM 144 mmol/L (136-145)
[2017-02-14 15:30] VITALS: BP 170/90
[2017-02-14 17:57] VITALS: BP 186/106
[2017-02-14 18:28] LABS: CKMB 2.7 ng/ml (0.5-3.6); TROPONIN I 0.017 ng/ml (<0.045)
[2017-02-14 18:37] VITALS: BP 189/102
[2017-02-14] MEDS ORDERED: NORVASC10 MG PO (19:29)
[2017-02-14 20:00] VITALS: BP 186/89
[2017-02-14 21:44] VITALS: BP 142/70
[2017-02-15] VITALS (16 sets, daily range): BP systolic 148–219; BP diastolic 67–98
[2017-02-15 00:48] LABS: CKMB 2.4 ng/ml (0.5-3.6); TROPONIN I 0.029 ng/ml (<0.045)
[2017-02-15 06:33] LABS: BASO # 0.1 10*3/uL (0.0-0.1); BASO % 0.6 % (0.0-1.0); EOS # 0.1 10*3/uL (0.0-0.4); EOS % 0.7 % (1.0-4.0); HEMATOCRIT 32.2 % (42.0-52.0); HEMOGLOBIN 10.5 g/dl (14.0-18.0); LYMPH # 1.7 10*3/uL (1.3-4.4); LYMPH % 19.9 % (27.0-41.0); MEAN CORPUSCULAR HGB 28.4 pg (27.0-31.0); MEAN CORPUSCULAR HGB CONC 32.6 g/dl (33.0-37.0); MEAN PLATELET VOLUME 11.3 fl (9.6-12.3); MONO # 0.5 10*3/uL (0.1-1.0); MONO % 6.4 % (3.0-9.0); NEUT # 6.1 10*3/uL (2.3-7.9); PLATELET COUNT AUTOMATED 261 10*3/uL (130-400); RED CELL DISTRI WIDTH 15.3 % (0-14.5); WHITE BLOOD COUNT 8.4 10*3/uL (4.8-10.8)
[2017-02-15 06:48] LABS: CKMB 2.8 ng/ml (0.5-3.6); TROPONIN I 0.031 ng/ml (<0.045)
[2017-02-15 07:04] LABS: CARBON DIOXIDE 27 mmol/L (21-32); CHLORIDE 111 mmol/L (98-107); GLUCOSE 124 mg/dL (65-99); POTASSIUM 3.6 mmol/L (3.5-5.1); SODIUM 146 mmol/L (136-145)
[2017-02-15 07:07] LABS: BUN 16 mg/dl (7-24); EST GLOM FILT AFRICAN AMERICAN > 60 ml/min
[2017-02-15 21:36] LABS: BILIRUBIN 1+ (NEGATIVE); BLOOD NEGATIVE (NEGATIVE); CLARITY SL CLOUDY (CLEAR); COLOR YELLOW (YELLOW); GLUCOSE NEGATIVE (NEGATIVE); KETONE 1+ (NEGATIVE); LEUKO ESTERASE NEGATIVE (NEGATIVE); NITRITE NEGATIVE (NEGATIVE); PH 5.5 (5.0-9.0); PROTEIN TRACE (NEGATIVE); SPECIFIC GRAVITY 1.025 (1.005-1.030); UROBILINOGEN 0.2 E.U./dl (0.2-1.0)
[2017-02-15 21:42] LABS: MUCOUS TRACE; URIC ACID CRYSTALS TRACE
[2017-02-15 21:43] LABS: BACTERIA 2+; URINE REFLEX COMMENT YES (NO)
[2017-02-16] VITALS: BP 136/55
[2017-02-16 06:05] LABS: BASO # 0.1 10*3/uL (0.0-0.1); BASO % 0.9 % (0.0-1.0); EOS # 0.1 10*3/uL (0.0-0.4); EOS % 1.2 % (1.0-4.0); HEMATOCRIT 28.7 % (42.0-52.0); HEMOGLOBIN 9.5 g/dl (14.0-18.0); LYMPH # 1.5 10*3/uL (1.3-4.4); MEAN CELL VOLUME 85.9 fl (80.0-94.0); MEAN CORPUSCULAR HGB 28.4 pg (27.0-31.0); MEAN CORPUSCULAR HGB CONC 33.1 g/dl (33.0-37.0); MEAN PLATELET VOLUME 11.5 fl (9.6-12.3); MONO # 0.5 10*3/uL (0.1-1.0); MONO % 6.3 % (3.0-9.0); NEUT # 5.4 10*3/uL (2.3-7.9); NEUT % 71.3 % (47.0-73.0); PLATELET COUNT AUTOMATED 216 10*3/uL (130-400); RED BLOOD COUNT 3.34 10*6/uL (4.50-5.90); RED CELL DISTRI WIDTH 15.5 % (0-14.5); WHITE BLOOD COUNT 7.6 10*3/uL (4.8-10.8)
[2017-02-16 06:27] LABS: BUN 9 mg/dl (7-24); CARBON DIOXIDE 23 mmol/L (21-32); CHLORIDE 111 mmol/L (98-107); EST GLOM FILT AFRICAN AMERICAN > 60 ml/min; GLUCOSE 94 mg/dL (65-99); POTASSIUM 2.9 mmol/L (3.5-5.1); SODIUM 146 mmol/L (136-145)
[2017-02-16 08:00] VITALS: BP 150/78
[2017-02-16 12:00] VITALS: BP 182/80
[2017-02-16 16:00] VITALS: BP 176/70
[2017-02-16 20:00] VITALS: BP 180/74
[2017-02-17] VITALS: BP 172/70
[2017-02-17 06:12] LABS: BASO # 0.1 10*3/uL (0.0-0.1); BASO % 0.8 % (0.0-1.0); EOS # 0.1 10*3/uL (0.0-0.4); EOS % 1.7 % (1.0-4.0); HEMATOCRIT 30.2 % (42.0-52.0); LYMPH % 27.9 % (27.0-41.0); MEAN CELL VOLUME 84.8 fl (80.0-94.0); MEAN CORPUSCULAR HGB 28.1 pg (27.0-31.0); MEAN CORPUSCULAR HGB CONC 33.1 g/dl (33.0-37.0); MEAN PLATELET VOLUME 11.4 fl (9.6-12.3); MONO # 0.5 10*3/uL (0.1-1.0); MONO % 7.1 % (3.0-9.0); NEUT # 4.4 10*3/uL (2.3-7.9); NEUT % 62.2 % (47.0-73.0); PLATELET COUNT AUTOMATED 222 10*3/uL (130-400); RED BLOOD COUNT 3.56 10*6/uL (4.50-5.90); RED CELL DISTRI WIDTH 15.1 % (0-14.5); WHITE BLOOD COUNT 7.1 10*3/uL (4.8-10.8)
[2017-02-17 06:16] LABS: BUN 5 mg/dl (7-24); CARBON DIOXIDE 25 mmol/L (21-32); CHLORIDE 105 mmol/L (98-107); EST GLOM FILT AFRICAN AMERICAN > 60 ml/min; GLUCOSE 77 mg/dL (65-99); POTASSIUM 2.8 mmol/L (3.5-5.1); SODIUM 140 mmol/L (136-145)
[2017-02-17 08:00] VITALS: BP 134/64
[2017-02-17 08:26] LABS: ALBUMIN 2.8 gm/dl (3.1-4.5); BILIRUBIN, DIRECT 0.2 mg/dL (0.0-0.2); BILIRUBIN, TOTAL 0.5 mg/dl (0.2-1.0); MAGNESIUM 1.7 mg/dL (1.5-2.1); TOTAL PROTEIN 5.8 gm/dL (6.4-8.2)
[2017-02-17 16:00] VITALS: BP 218/102
[2017-02-17 16:30] VITALS: BP 180/76
[2017-02-17 20:00] VITALS: BP 190/90
[2017-02-17 23:50] VITALS: BP 108/88
[2017-02-18 04:00] VITALS: BP 110/68
[2017-02-18 06:48] LABS: BUN 3 mg/dl (7-24); CARBON DIOXIDE 26 mmol/L (21-32); CHLORIDE 104 mmol/L (98-107); EST GLOM FILT AFRICAN AMERICAN > 60 ml/min; GLUCOSE 81 mg/dL (65-99); POTASSIUM 2.5 mmol/L (3.5-5.1); SODIUM 139 mmol/L (136-145)
[2017-02-18 08:00] VITALS: BP 105/47
[2017-02-18 16:00] VITALS: BP 170/85
[2017-02-18 20:00] VITALS: BP 136/68
[2017-02-19] VITALS: BP 96/54
[2017-02-19 08:00] VITALS: BP 113/60
[2017-02-19 08:48] LABS: BASO % 0.5 % (0.0-1.0); EOS # 0.1 10*3/uL (0.0-0.4); EOS % 0.7 % (1.0-4.0); HEMATOCRIT 34.9 % (42.0-52.0); HEMOGLOBIN 11.7 g/dl (14.0-18.0); LYMPH # 1.3 10*3/uL (1.3-4.4); LYMPH % 15.5 % (27.0-41.0); MEAN CELL VOLUME 84.3 fl (80.0-94.0); MEAN CORPUSCULAR HGB 28.3 pg (27.0-31.0); MEAN CORPUSCULAR HGB CONC 33.5 g/dl (33.0-37.0); MEAN PLATELET VOLUME 11.7 fl (9.6-12.3); MONO # 0.6 10*3/uL (0.1-1.0); MONO % 6.6 % (3.0-9.0); NEUT # 6.6 10*3/uL (2.3-7.9); NEUT % 76.2 % (47.0-73.0); PLATELET COUNT AUTOMATED 220 10*3/uL (130-400); RED BLOOD COUNT 4.14 10*6/uL (4.50-5.90); WHITE BLOOD COUNT 8.7 10*3/uL (4.8-10.8)
[2017-02-19 09:02] LABS: ALBUMIN 2.9 gm/dl (3.1-4.5); ALKALINE PHOSPHATASE 68 U/L (45-117); BILIRUBIN, TOTAL 0.4 mg/dl (0.2-1.0); BUN 4 mg/dl (7-24); CARBON DIOXIDE 28 mmol/L (21-32); CHLORIDE 106 mmol/L (98-107); EST GLOM FILT AFRICAN AMERICAN > 60 ml/min; GLUCOSE 56 mg/dL (65-99); POTASSIUM 2.8 mmol/L (3.5-5.1); SGOT/AST 15 IU/L (3-35); SGPT/ALT 11 U/L (12-78); SODIUM 140 mmol/L (136-145); TOTAL PROTEIN 6.4 gm/dL (6.4-8.2)
[2017-02-19 12:00] VITALS: BP 140/79
[2017-02-19 16:00] VITALS: BP 110/54
[2017-02-19] MEDS ORDERED: LEVEMIR10 ML SC (16:31)
[2017-02-19] MEDS ORDERED: MIRTAZAPINE15 M2 PO (16:31)
[2017-02-19] MEDS ORDERED: METOCLOPRAMIDE H5 M1 PO (16:31)
[2017-02-19] MEDS ORDERED: PROTONIX40 MG/PACK PO (16:31)
[2017-02-19 20:00] VITALS: BP 114/60
[2017-02-19 23:59] VITALS: BP 109/64
[2017-02-20 08:00] VITALS: BP 153/63
[2017-02-20 10:07] LABS: BUN 3 mg/dl (7-24); CARBON DIOXIDE 24 mmol/L (21-32); CHLORIDE 109 mmol/L (98-107); EST GLOM FILT AFRICAN AMERICAN > 60 ml/min; GLUCOSE 51 mg/dL (65-99); POTASSIUM 3.2 mmol/L (3.5-5.1); SODIUM 140 mmol/L (136-145)
[2017-02-20] MEDS ORDERED: LEVEMIR10 ML SC (10:55)
[2017-02-20 12:00] VITALS: BP 151/92
[2017-02-20 16:00] VITALS: BP 142/79
== END 2017-02-20 16:12 | disposition home health service (06) | DRG 871 ==
LOC: ED 14:12 → EDHOLD 16:08 → 4E 16:08
PROVIDERS: Emergency Medicine; Family Medicine; Internal Medicine; Internal Medicine Hospice and Palliative Medicine; Student in an Organized Health Care Education/Training Program
PROC: 0DB68ZX Excision of Stomach, Via Natural or Artificial Opening Endoscopic, Diagnostic (ICD-10-PCS; principal; 2017-02-15)
DX: A41.9 Sepsis, unspecified organism (principal); E43 Unspecified severe protein-calorie malnutrition; N17.0 Acute kidney failure with tubular necrosis; E87.0 Hyperosmolality and hypernatremia; E11.40 Type 2 diabetes mellitus with diabetic neuropathy, unspecified; E86.0 Dehydration; M86.8X7 Other osteomyelitis, ankle and foot; F33.9 Major depressive disorder, recurrent, unspecified; I10 Essential (primary) hypertension; D64.9 Anemia, unspecified; E53.8 Deficiency of other specified B group vitamins; I16.0 Hypertensive urgency; E55.9 Vitamin D deficiency, unspecified; K29.70 Gastritis, unspecified, without bleeding; K44.9 Diaphragmatic hernia without obstruction or gangrene; E83.39 Other disorders of phosphorus metabolism; E87.6 Hypokalemia; E11.65 Type 2 diabetes mellitus with hyperglycemia; E11.51 Type 2 diabetes mellitus with diabetic peripheral angiopathy without gangrene; M19.90 Unspecified osteoarthritis, unspecified site; K52.9 Noninfective gastroenteritis and colitis, unspecified; E11.69 Type 2 diabetes mellitus with other specified complication; K21.0 Gastro-esophageal reflux disease with esophagitis; E11.621 Type 2 diabetes mellitus with foot ulcer; Z99.3 Dependence on wheelchair; Z89.029 Acquired absence of unspecified finger(s); Z82.49 Family history of ischemic heart disease and other diseases of the circulatory system; Z83.3 Family history of diabetes mellitus; Z79.82 Long term (current) use of aspirin; Z79.84 Long term (current) use of oral hypoglycemic drugs; Z79.4 Long term (current) use of insulin; Z79.2 Long term (current) use of antibiotics; Z68.23 Body mass index [BMI] 23.0-23.9, adult

== ENCOUNTER → 2017-03-19 | Outpatient (CLI) | payer OTHER ==
[~2017-03-19] MED LIST changes: +LEVEMIR10 ML SC; +METOCLOPRAMIDE H5 M1 PO; +MIRTAZAPINE15 M2 PO; +NORVASC10 MG PO; +PROTONIX40 MG/PACK PO
--- NOTE | ~2017-03-19 | WRIGHTHP ---
[place], [place] PATIENT HISTORY AND PHYSICAL EXAM NAME: MARIO ROBERT [facility] #: [id number] UNIT #: [id number] ROOM: DOCTOR: SAPPHIRE DíazSTORMY BIRTHDATE: [birth year] DOS: 03/19/2017 This is a new patient evaluation. CHIEF COMPLAINT: Bilateral diabetic ulcers of the feet. HISTORY OF PRESENT ILLNESS: This is a 61-year-old male with a history of type 2 diabetes and neuropathy and peripheral vascular disease, who has had open ulcerations of the bilateral feet for some time now. Most of the medical history comes from the charts as well as patient report. He is somewhat of a poor historian, however. He apparently was admitted in October with what appears to be large eschar, wounds and gangrenous changes of his left great toe, right great toe and bilateral heel ulcerations. He also had a large eschar on the lateral side of the right foot. It was noted that he had severe peripheral vascular disease and was transferred out to it [facility] for vascular assessment. He did have an MRI done back in October that showed acute osteomyelitis of the fifth metatarsal head and proximal phalanx as well as tendinopathy, which was likely infectious in nature that was of the left foot. The right foot showed ulceration of the great toe with evidence of acute osteomyelitis within the distal phalanx, soft tissue swelling was noted with evidence of cellulitis, no obvious abscess was noted, and then it looks like he underwent revascularization. He said he saw Dr. Rock and he was able to do something with balloons. He is very vague about the procedure and is not sure if it was successful. However, he was then repeat admission back in December, when he was admitted for GI bleed. He had apparently, after his revascularization in October, he had been staying in a correction facility for his lower extremity wounds, cellulitis, osteomyelitis of his feet. Back in early December, he was readmitted with wounds again. Bilateral foot ulcerations were appreciable. He had notable eschar still on the lateral fifth metatarsophalangeal joint on the right side as well as eschar on the fifth metatarsophalangeal joint on the left. He had undergone an MRI as well, which was consistent with osteomyelitis of the fifth metatarsophalangeal joint of the left foot. Apparently, it was noted that he still had some arterial insufficiency despite revascularization and it was recommended by Podiatry at that time to consider hyperbaric oxygen therapy as well as IV antibiotics and local wound care; however, he was not referred to the Wound Clinic as far as I know. He was readmitted back later in December, at the end of December, after a fall and generalized weakness, and it was noted on his records that he did have some IV antibiotics; however, the patient does not recall getting IV antibiotics in the senior care. In any case, he was admitted with what appeared to be a probable osteo of the left calcaneus as well as a laceration of the left great toe. The patient underwent bone debridement and biopsy of the left heel as well as primary closure of the laceration of the left foot. The bone biopsy was positive for chronic osteomyelitis. I did not see any bone cultures that were done, however, other than the path report, and the patient was discharged with diagnosis of osteomyelitis of the left foot at the end of December, January 18. The wound cultures did grow Pseudomonas and he was discharged on oral Cipro, it looks like. He was discharged with instructions to follow up with Podiatry as well as Wound Care; however, he did not come to the Wound Clinic. He was readmitted in January again for intractable nausea, vomiting, dehydration and [place], [place] PATIENT HISTORY AND PHYSICAL EXAM NAME: MARIO ROBERT [facility] #: [id number] UNIT #: [id number] ROOM: DOCTOR: STORMY LEARY M.D. BIRTHDATE: [birth year] severe weight loss, wherein he underwent a Podiatry consultation who felt that he had some surgery back in December where he had sutures placed for his laceration of his left great toe appeared to be healing quite nicely. In any case, the patient has been at home, he has not had antibiotics recently that he is aware of and he continues to have open wound of both of his feet. He said he is mostly concerned with the right foot at this time, as it seems most of the attention was placed prior on the left foot; however, the right foot he feels needs attention at this time. His home health nurse had recommended for him to follow up with us. PAST MEDICAL HISTORY: His past medical history is quite complicated and involves anemia, arthritis, multiple diabetic foot infections, folate deficiency, hypertension, insulin-dependent diabetes, osteomyelitis of the left foot, peripheral vascular disease, severe protein-calorie malnutrition, vitamin D deficiency. He has had amputation of the finger, history of hernia repair, periumbilical vascular dilation, peripheral vascular disease, status post revascularization. He had a history of hypertensive cardiovascular disease. He does have history of difficulty clearing his ears, right eardrum inversion, type 2 diabetes as stated above with a fairly good hemoglobin A1c of 6.4 recently. He has a history of gastritis, GERD, severe recurrent nausea, vomiting, constipation, chronic abdominal pain, hiatal hernia, anemia, arthritis, history of anxiety, nervousness, tension and depression. He is status post tonsillectomy, appendectomy, cholecystectomy and history of sepsis back in October of 2016. FAMILY HISTORY: Significant for hypertension and heart disease. SOCIAL HISTORY: He has never smoked. He is single, currently he is living with his brother at home. He has home health coming in. He ambulates with a wheeled walking device, and he is just wearing regular shoes when he comes in today. REVIEW OF SYSTEMS: Currently, he says his nausea and vomiting is under control. He really has not put on much weight since it is stabilized. He has chronic abdominal pain, which he says his primary care physician is aware of. He denies any chest pains or shortness of breath or pain with his wounds. No fevers or chills or purulent drainage at this time. PHYSICAL EXAMINATION: VITAL SIGNS: He is afebrile, pulse of 100, respirations 18, blood pressure is 100/60. GENERAL: He is an alert male who appears older than his stated age, slightly pale to examination, somewhat of a flat affect, lying in bed, in no acute distress. HEENT AND NECK: His oropharynx is clear. Mucous membranes are moist. He has very poor dentition with obvious dental caries. There is no JVD. He has some pallor noted. Sclerae are anicteric. There is no JVD. There are no bruits that I could detect. LUNGS: Clear to auscultation, he has got a poor inspiratory effort. CARDIOVASCULAR: S1, S2, regular rate and rhythm. ABDOMEN: Soft. He has got positive bowel sounds. He has diffuse abdominal [place], [place] PATIENT HISTORY AND PHYSICAL EXAM NAME: MARIO ROBERT UNIT #: [id number] ROOM: DOCTOR: SAPPHIRE DíazSTORMY BIRTHDATE: [birth year] discomfort. No rigidity or guarding. No rebound. He says this is normal for him. EXTREMITIES: He has no edema. His feet are warm. His capillary refill is less than 3. His toes are slightly cool on the right side, however. He has got palpable dorsalis pedis on both of his feet, but posterior tibials are difficult to feel. His HERNANDO was 1.76 on the left and 1.18 on the right. NEUROLOGIC: He seems to be moving all 4 extremities equally. WOUND EXAMINATION: He has several open ulcers, there are at least 4. One, this is a plantar wound that is located on the first metatarsal head area, it is measuring 0.7 x 0.2 x 0.1 and it is surrounded by thick callus. Wound #2 is located on the right lateral plantar aspect, it is measuring 1.4 x 1.2 x 0.1. Wound #3 is located on the right medial great toe, it is 0.5 x 0.4 x 0.1. Wound #4 is located on the right midline of the right great toe, it is 0.5 x 1 x 0.1. We discussed debridement with the patient. The right lateral foot, the right medial great toe as well as the left plantar metatarsal wound were debrided selectively. The tissue removed was just nonviable hyperkeratotic tissue only, fibrin and slough and biofilm. The patient tolerated the debridement well. There was minimal bleeding that was controlled with pressure. Cetacaine spray was used for topical anesthesia and a time-out was conducted prior to this procedure. Different scalpels were utilized for each wound. The post-debridement measurements of the left foot wound are 0.7 x 0.5 x 0.1. The right lateral plantar foot wound post-debridement measurements is 1.6 x 1.8 x 0.1 and the right midline great toe wound is 0.7 x 1 x 0.1. The previous left heel ulceration where he had bone debridement done looks healed at this time. It is not open and it is not draining, it is not tender. There is no sign of erythema. There is no sign of erythema or infection with any of these wounds at this time. LABORATORY DATA: His most recent lab work on 02/19/2017 shows a white count of 8.7, hemoglobin of 11.7, hematocrit 34.9. His potassium was 3.2, sodium was 140, BUN of 3 creatinine 0.74, glucose was 51. Albumin was low at 2.9. His ESR has been high, last time was 52, and his hemoglobin A1c was 6.4. CRP was 0.88 back in December. ASSESSMENT AND PLAN: Chronic diabetic foot ulcers, now we have wounds on the right lateral foot and the right great toe. The left heel wound appears to be healed. He had a history of osteomyelitis of this foot and it looks like most of the wounds on the left foot have definitely healed. He still has a ulceration on the plantar aspect of the first metatarsal head, which from I could see some of the pictures back when he was admitted in the hospital and it definitely looks smaller than it had. So, right now, we are dealing with the right lateral foot wound and a right great toe wound, which appears to also be improved from previously, but is chronic and has been present since October. I would like to get the records from Dr. Rock's office. I would like to repeat the arterial ultrasound. The wound does not appear to be deep at this time; however, there may be some underlying osteo present on this foot as well. So, we will go ahead and start with an MRI. There is no sign of an acute infection at this time. I would also like to get the reports from Dr. Rock to see what kind of revascularization he had done. He is a nonsmoker. We would like to offload him with a postop shoe for now. I do not think he is a candidate for [place], [place] PATIENT HISTORY AND PHYSICAL EXAM [facility]: [id number] UNIT #: [id number] ROOM: DOCTOR: SAPPHIRE DíazSTORMY BIRTHDATE: [birth year] contact cast due to his severe debility and generalized weakness. I did place an offloading felt foam around the periphery of the wound to see if this would help offload it a bit, so hopefully we will see some improvement by next week. In the meantime, we will use a collagen silver dressing and have him follow up next week. He did also note to have what appeared to be a small superficial abrasion of the right dorsal aspect of the second toe, so we will use the Bactroban ointment for this one. MEDICATIONS: I did want to mention his medications are his most recent medications from discharge back in February are as follows: Metformin 500 three times a day, aspirin 81 daily, carvedilol 12.5 b.i.d., Plavix 75 daily, pravastatin 40 mg at bedtime, subcutaneous NovoLog sliding scale, Dulcolax 10 mg every day as needed, milk of magnesia per day as needed, Zofran p.r.n., terbinafine 250 mg daily, insulin 6 units subcutaneous 3 times a day before meals, lisinopril 20 mg daily, Norvasc 10 mg daily. Follow up in 1 week. I did mention to the patient about my concern about his chronic ongoing abdominal discomfort, he says his primary care doctor is aware of it and is chronic and has not changed in any manner. STORMY LEARY MD CM:HISPHYS:PATIENT HISTORY AND PHYSICAL EXAMINATION 01 34 STORMY LEARY M.D. 03/19/172113 interface
== END | disposition home or self-care (01) ==
LOC: WOUNDCARE 13:42
DX: E11.621 Type 2 diabetes mellitus with foot ulcer (principal); L97.512 Non-pressure chronic ulcer of other part of right foot with fat layer exposed; L97.522 Non-pressure chronic ulcer of other part of left foot with fat layer exposed; E11.40 Type 2 diabetes mellitus with diabetic neuropathy, unspecified; E11.52 Type 2 diabetes mellitus with diabetic peripheral angiopathy with gangrene; E11.69 Type 2 diabetes mellitus with other specified complication; M86.672 Other chronic osteomyelitis, left ankle and foot; M86.171 Other acute osteomyelitis, right ankle and foot; I10 Essential (primary) hypertension; M19.90 Unspecified osteoarthritis, unspecified site; K21.9 Gastro-esophageal reflux disease without esophagitis; F41.9 Anxiety disorder, unspecified; F32.9 Major depressive disorder, single episode, unspecified; Z79.4 Long term (current) use of insulin; Z89.029 Acquired absence of unspecified finger(s)

== ENCOUNTER 2017-03-28 12:10 | Emergency (ER) | payer OTHER ==
[~2017-03-28] VITALS: Ht 180.3 cm; Wt 68.0 kg
--- NOTE | ~2017-03-28 | EKG ---
[place], [place] ELECTROCARDIOGRAM REPORT NAME: MARIO ROBERT UNIT #: [id number] ROOM: DOCTOR: JHON CHIANG MD BIRTHDATE: [birth year] DOS: 03/28/2017 TIME: 12:36:43. Sinus rhythm, normal axis, normal intervals, poor R-wave progression in the anterior lead, left ventricular hypertrophy by voltage criteria, nonspecific ST-T changes. JHON CHIANG MD CM:EKGRPT:ELECTROCARDIOGRAM REPORT [id number] JHON CHIANG MD
[2017-03-28] MEDS ORDERED: LANTUS100 U/ML SC (12:37)
[2017-03-28 12:40] LABS: BASO # 0.1 10*3/uL (0.0-0.1); BASO % 0.5 % (0.0-1.0); EOS # 0.1 10*3/uL (0.0-0.4); EOS % 0.4 % (1.0-4.0); HEMATOCRIT 30.4 % (42.0-52.0); HEMOGLOBIN 9.8 g/dl (14.0-18.0); IG # 0.1 10*3/uL (0.0-0.1); LYMPH # 1.4 10*3/uL (1.3-4.4); LYMPH % 12.1 % (27.0-41.0); MEAN CELL VOLUME 86.9 fl (80.0-94.0); MEAN CORPUSCULAR HGB CONC 32.2 g/dl (33.0-37.0); MEAN PLATELET VOLUME 10.2 fl (9.6-12.3); MONO % 8.5 % (3.0-9.0); NEUT # 8.8 10*3/uL (2.3-7.9); NEUT % 77.9 % (47.0-73.0); PLATELET COUNT AUTOMATED 353 10*3/uL (130-400); RED CELL DISTRI WIDTH 15.1 % (0-14.5); WHITE BLOOD COUNT 11.4 10*3/uL (4.8-10.8)
[2017-03-28 12:59] LABS: ALBUMIN 2.8 gm/dl (3.1-4.5); ALKALINE PHOSPHATASE 73 U/L (45-117); BILIRUBIN, TOTAL 0.1 mg/dl (0.2-1.0); BUN 12 mg/dl (7-24); CARBON DIOXIDE 24 mmol/L (21-32); CHLORIDE 104 mmol/L (98-107); EST GLOM FILT AFRICAN AMERICAN > 60 ml/min; GLUCOSE 187 mg/dL (65-99); POTASSIUM 3.3 mmol/L (3.5-5.1); SGOT/AST 14 IU/L (3-35); SGPT/ALT 8 U/L (12-78); SODIUM 140 mmol/L (136-145); TOTAL PROTEIN 6.9 gm/dL (6.4-8.2)
[2017-03-28 13:00] LABS: TROPONIN I 0.076 ng/ml (<0.045)
== END 2017-03-28 14:47 | disposition home or self-care (01) ==
LOC: ED 12:10
PROVIDERS: Student in an Organized Health Care Education/Training Program
DX: E11.649 Type 2 diabetes mellitus with hypoglycemia without coma (principal); M19.90 Unspecified osteoarthritis, unspecified site; K21.9 Gastro-esophageal reflux disease without esophagitis; I10 Essential (primary) hypertension; E55.9 Vitamin D deficiency, unspecified; Z98.890 Other specified postprocedural states; Z90.49 Acquired absence of other specified parts of digestive tract; Z79.82 Long term (current) use of aspirin; Z79.899 Other long term (current) drug therapy

== ENCOUNTER → 2017-03-28 | Outpatient (CLI) | payer OTHER ==
--- NOTE | ~2017-03-28 | PR ---
[place], [place] PROGRESS NOTE NAME: MARIO ROBERT [facility] #: [id number] UNIT #: [id number] ROOM: DOCTOR: SAPPHIRE DíazSTORMY BIRTHDATE: [birth year] DOS: 03/28/2017 CHIEF COMPLAINT: Diabetic ulcers of the feet. HISTORY OF PRESENT ILLNESS: The patient is a 61-year-old diabetic patient with neuropathy and peripheral vascular disease. He has had chronic ulcerations of his feet since October. He is status post revascularization, status post bone debridement for treatment of osteomyelitis of the left heel as well as the fifth metatarsal head and proximal phalanx. The patient was seen for the first time in the Wound Clinic last week where he had debridement done and dressings recommended and he was asked to get an MRI. The insurance still had not approved it as well as repeat vascular testing, so he comes in for his followup visit today without any specific complaints regarding his wounds. He has no pain. He denies any fevers or chills. PHYSICAL EXAMINATION: Temperature of 98.2, pulse of 102, respirations 18, blood pressure is 138/70. Wound #1 is located on the left plantar aspect of the metatarsal head and is measuring smaller at 0.4 x 0.2 x 0.2. There is some callus surrounding it, but it definitely looks smaller than last week. There is no sign of infection or purulence or undermining. The wound on the right lateral foot is also measuring smaller at 1 x 1 x 0.1. There is some callus surrounding it as well. Wound #4 is on the right great toe and it is just a dried area of blood from a previous ulceration. It is not actually open at this time. It is measuring 0.5 x 0.9 x 0.1, essentially the same. He had another wound located on the second digit of the right foot, dorsal aspect that is healed at this point. A debridement was done of all these 3 wounds. There were selective debridement only. A 100% of the wounds were debrided of hyperkeratotic fibrin slough, biofilm. This was debrided with a #15 blade. Separate blades were used for each of the wounds. There was moderate amount of bleeding with the wound on the right foot. None on the left foot and none on the right great toe. The patient tolerated the debridement well. The post-debridement measurements on the left plantar foot is 0.7 x 0.4 x 0.1. The post-debridement measurements on the right lateral foot is measuring 1.1 x 1 x 0.1. The wound on the right great toe essentially is measuring the same post-debridement. However, it does appear that there was a fine layer of epithelial tissue underneath it. So, it is definitely in its healing state. After the wounds were debrided, the patient had asked for something to drink and said he was feeling weak, felt like his sugar was may be getting low. He did say he ate this morning. His sugar was 154 this morning, but he did eat a piece of toast for breakfast and did take his medications, which includes insulin. A glass of orange juice was given to the patient. The patient said he is starting to feel better, but he was notably diaphoretic profusely. Said he did not have any chest pain, was not really feeling any lightheadedness or dizziness. No nausea, but still feeling very weak and was notably pale. Repeat pulse was in the 90s and a stat fingerstick was taken, which was read as critically low. Due to the persistence of hypoglycemic symptoms, we also encouraged him to eat Berny crackers. A phone call was made to the Emergency Department for transfer there for further management and evaluation of his symptoms. ASSESSMENT AND PLAN: Diabetic foot ulcers, which appeared to be healing. We [place], [place] PROGRESS NOTE NAME: MARIO ROBERT UNIT #: [id number] ROOM: DOCTOR: STORMY LEARY M.D. BIRTHDATE: [birth year] still have not had any reports from his vascular status. So, we were obtaining ultrasound done today, which may need to be postponed due to his recent hypoglycemic attack. I am awaiting records from [facility] for the procedures that he had done. He has been scheduled for an MRI, which is still pending. There is no sign of an acute infection at this point. The wounds appear to be healing on the current dressings. We continued with the current dressings and we were going to continue offload the area a bit with a metatarsal pad with a hole cut out of it to offload the surrounding tissue. The other issue is the marked hypoglycemia. The patient has had a profound weight loss, failure to thrive and diabetes and he is notably weak and symptomatically hypoglycemic at this point, so he is going to be transferred to the Emergency Room Department for further management. Follow up in wound clinic in 1 week. STORMY LEARY MD CM:LASHAWN [id number] STORMY LEARY M.D. 03/29/17 0005 interface
== END | disposition home or self-care (01) ==
LOC: LAB 07:01 → WOUNDCARE 07:01 → US 07:01
DX: E11.621 Type 2 diabetes mellitus with foot ulcer (principal); L97.512 Non-pressure chronic ulcer of other part of right foot with fat layer exposed; L97.522 Non-pressure chronic ulcer of other part of left foot with fat layer exposed; E11.51 Type 2 diabetes mellitus with diabetic peripheral angiopathy without gangrene; L84 Corns and callosities; E11.40 Type 2 diabetes mellitus with diabetic neuropathy, unspecified; E11.69 Type 2 diabetes mellitus with other specified complication; M86.8X7 Other osteomyelitis, ankle and foot

== ENCOUNTER → 2017-04-05 | Outpatient (CLI) | payer OTHER ==
--- NOTE | ~2017-04-05 | PR ---
[place], [place] PROGRESS NOTE NAME: MARIO ROBERT [facility] #: [id number] UNIT #: [id number] ROOM: DOCTOR: SAPPHIRE DíazSTORMY BIRTHDATE: [birth year] DOS: 04/05/2017 CHIEF COMPLAINT: Follow up of diabetic foot ulcers. HISTORY OF PRESENT ILLNESS: A 61-year-old male with diabetes and neuropathy who has been coming to the Wound Clinic for 2 weeks now. He has had wounds on his feet since October, he is status post revascularization. He has a history of osteomyelitis of left heel which is healed and fifth metatarsal head of the left foot. We had ordered an MRI as well and repeat vascular ultrasound, but it has not been done yet. The patient was seen last week and was significantly hypoglycemic. He comes in today for followup wound care visit. He says overall he thinks the wounds are not changed in any way. There is no significant pain. He says sometimes the dressing is bulky and that is uncomfortable at times, but otherwise, he does not really have any pain, no fevers or chills, no change in drainage. He says he saw his primary care physician, recently had some lab work and his hemoglobin A1c was 6.5. OBJECTIVE: VITAL SIGNS: Stable. Temperature is 97.8, pulse of 84, respirations 18, blood pressure is 150/72. The wounds are measuring, one on the left plantar aspect is measuring 0.5 x 0.2 x 0.2. There is some thick callus still present, overall it looks clean without any sign of infection. There was a slight bit of undermining noted from the 12-4 o'clock with a maximum depth of 0.2. The wound #2 which is located on the right plantar aspect is measuring 1.3 x 0.8 x 0.1. It definitely looks smaller to me and there is still some callus, but it is not as thick as when he first presented. It definitely look stable and appears to be healing. The wound #4 which was located on the toe is healed. There is no open area. He does have an area on his third toe on the dorsal aspect of the right foot. It did seem to have the appearance of an abrasion last time, now it looks healed. There is skin over it, but there is still some bruising noted, that does appear to be still possibly from trauma or pressure in some way. His feet are warm. He has got good capillary refill. A selective debridement was done on the plantar aspect of the left foot as well as the right lateral wound, these were both selective debridement. The tissue removed was just nonviable hyperkeratotic tissue, some fibrin slough. The undermined area was cut away on the left foot wound and there was no bleeding. It was a selective debridement only, instruments used was #15 blade and forceps and scissors. Post-debridement, measurements of the left foot wound are 0.9 x 0.6 x 0.2. Post-debridement, measurements on the right lateral wound is measuring 1 x 0.8 x 0.1. ASSESSMENT AND PLAN: Diabetic foot ulcers. The wounds appear to be stable. The right leg wound appears to be improving faster than the left leg and I believe because he is using the postop shoe on the right foot. He really has some difficulty ambulating and we have been concentrating on offloading the right foot more than the left foot; however, he is really not a candidate for contact cast due to his balance issues, so he has bilateral foot wounds and I think that we should get the group supervisor yard to see him next week to see if there is another offloading device that we can try to utilize for him. He wears some old shoes for his left foot that do not seem to have much support in the middle, so [place], [place] [facility]GRESS [facility] [id number] #: [id number] ROOM: DOCTOR: STORMY LEARY M.D. BIRTHDATE: [birth year] he should definitely have some diabetic shoes as well. So, we are awaiting the MRI and he does have ultrasound being repeated. So far woundsave stable and without sign of infection and if he does still have evidence of osteo, we may want to consider hyperbarics. We may also want to consider biologics for him as well, so follow up is in 1 week. ADDENDUM We will continue with the same dressings which is collagen. STORMY LEARY MD CM:TATYCHAD [id number] STORMY LEARY M.D. 04/06/17 0927 interface
== END ==
LOC: WOUNDCARE 03:17
DX: E11.621 Type 2 diabetes mellitus with foot ulcer (principal); L97.512 Non-pressure chronic ulcer of other part of right foot with fat layer exposed; L97.522 Non-pressure chronic ulcer of other part of left foot with fat layer exposed; E11.51 Type 2 diabetes mellitus with diabetic peripheral angiopathy without gangrene; E11.40 Type 2 diabetes mellitus with diabetic neuropathy, unspecified; E11.69 Type 2 diabetes mellitus with other specified complication; M86.8X7 Other osteomyelitis, ankle and foot

== ENCOUNTER → 2017-04-11 | Outpatient (CLI) | payer OTHER ==
--- NOTE | ~2017-04-11 | PR ---
[place], [place] PROGRESS NOTE NAME: MARIO ROBERT [facility] #: [id number] UNIT #: [id number] ROOM: DOCTOR: SAPPHIRE DíazSTORMY BIRTHDATE: [birth year] DOS: 04/11/2017 CHIEF COMPLAINT: Follow up of diabetic foot ulcer. HISTORY OF PRESENT ILLNESS: A 61-year-old male with a history of diabetes and neuropathy who has had bilateral ulcerations on his feet. He has been coming to the Wound Clinic for 3 weeks now. He has a history of osteomyelitis of the left heel and the fifth metatarsal on the left foot, which those wounds have healed. He still has not had his MRI nor his vascular ultrasound, we are still waiting for that. He states he had his hemoglobin A1c done. His PCP reports that it is under 7, around 6.4-6.5 range, so he is quite happy with that. He says overall, his wounds are doing better. There is really no significant change in drainage. No fevers or chills. At times, the dressings are bit bulky and he is sometimes uncomfortable with it, but overall he is not having any significant pain. He does have a postop shoe for the right wound and has been wearing poorly finning slipper-type shoes for his left foot. He does not have diabetic shoes. PHYSICAL EXAMINATION: VITAL SIGNS: He is afebrile, pulse of 102, respirations 18, blood pressure is 158/74. The wound on the left foot looks clean. There is some callus, it is measuring 0.7 x 0.3 x 0.2. There is no purulence. There is no undermining. On the right foot, the plantar wound is measuring much smaller at 0.5 x 0.6 x 0.1, it looks clean. There is really no overt necrotic tissue. There is really very small amount of callus present. Debridement was done of both of these wounds. The tissue removed was callus, just nonviable tissue, fibrin slough, biofilm. Subcutaneous tissue was not removed. The instrument utilized was a #15 blade, separate blades were used for each of the wound. There was moderate amount of bleeding with the right foot wound that was controlled with pressure. Post-debridement measurements for the left foot wound is 0.9 x 0.4 x 0.1 and for the right wound is 0.5 x 0.6 x 0.1. ASSESSMENT AND PLAN: Diabetic foot ulcer, which is definitely improved and stable. Overall, he still has callus on the left foot, we have not been able to offload it really well. We had him be evaluated by the lamp assembler, he is going to be getting diabetic shoes, hopefully that will help. In the meantime, we will continue with the collagen dressing. I put a felt pad to offload the area of the left foot because he still has a large buildup of callus, hopefully this will prevent some of the callus from re-forming. He is not a good candidate for contact cast since he has severe balance issues, and work up for MRI and vascular studies are still pending. Follow up in one week. [place], [place] PROGR[facility] NOTE [facility] [id number] UNIT #: [id number] ROOM: DOCTOR: STORMY LEARY M.D. BIRTHDATE: [birth year] STORMY LEARY MD CM:LASHAWN [id number] STORMY LEARY M.D. 04/11/17 1506 interface
== END ==
LOC: WOUNDCARE 10:39
DX: E11.621 Type 2 diabetes mellitus with foot ulcer (principal); L97.512 Non-pressure chronic ulcer of other part of right foot with fat layer exposed; L97.522 Non-pressure chronic ulcer of other part of left foot with fat layer exposed; E11.51 Type 2 diabetes mellitus with diabetic peripheral angiopathy without gangrene; E11.40 Type 2 diabetes mellitus with diabetic neuropathy, unspecified; E11.69 Type 2 diabetes mellitus with other specified complication; M86.8X7 Other osteomyelitis, ankle and foot; I48.91 Unspecified atrial fibrillation

== ENCOUNTER → 2017-04-16 | Outpatient (CLI) | payer OTHER | END | disposition home or self-care (01) | LOC: US 03-28 12:30 → MRI 03-28 14:00 → US 01:17 | DX: E11.621 Type 2 diabetes mellitus with foot ulcer (principal); I73.9 Peripheral vascular disease, unspecified; B96.89 Other specified bacterial agents as the cause of diseases classified elsewhere; S81.802A Unspecified open wound, left lower leg, initial encounter; S81.801A Unspecified open wound, right lower leg, initial encounter; S91.104A Unspecified open wound of right lesser toe(s) without damage to nail, initial encounter; M79.89 Other specified soft tissue disorders; M19.071 Primary osteoarthritis, right ankle and foot; M65.871 Other synovitis and tenosynovitis, right ankle and foot; L97.512 Non-pressure chronic ulcer of other part of right foot with fat layer exposed; L97.522 Non-pressure chronic ulcer of other part of left foot with fat layer exposed; Z71.3 Dietary counseling and surveillance; X58.XXXA Exposure to other specified factors, initial encounter; Y93.89 Activity, other specified; Y92.89 Other specified places as the place of occurrence of the external cause; Y99.8 Other external cause status ==

== ENCOUNTER → 2017-04-24 | Outpatient (CLI) | payer OTHER | LOC: WOUNDCARE | DX: E11.621 Type 2 diabetes mellitus with foot ulcer (principal); L97.512 Non-pressure chronic ulcer of other part of right foot with fat layer exposed; L97.522 Non-pressure chronic ulcer of other part of left foot with fat layer exposed; E11.51 Type 2 diabetes mellitus with diabetic peripheral angiopathy without gangrene; L84 Corns and callosities ==

== ENCOUNTER → 2017-05-01 | Outpatient (CLI) | payer OTHER | LOC: WOUNDCARE 02:49 | DX: E11.621 Type 2 diabetes mellitus with foot ulcer (principal); L97.512 Non-pressure chronic ulcer of other part of right foot with fat layer exposed; E11.51 Type 2 diabetes mellitus with diabetic peripheral angiopathy without gangrene ==

== ENCOUNTER → 2017-05-08 | Outpatient (CLI) | payer OTHER ==
--- NOTE | ~2017-05-08 | PR ---
[place], [place] PROGRESS NOTE NAME: MARIO ROBERT [facility] #: [id number] UNIT #: [id number] ROOM: DOCTOR: STORMY LEARY M.D. BIRTHDATE: [birth year] DOS: 05/08/2017 CHIEF COMPLAINT: Followup of diabetic foot ulcers. HPI: This is a 61-year-old male with type 2 diabetes and peripheral vascular disease, who has been coming to the Wound Clinic for 7 weeks now. Last week, he was started on an antibiotic for the wound on his right lateral foot as it was noted to have some purulent drainage he first came, however, and the margins have been slightly increased. He was also prescribed topical Bactroban and Maxorb. He has home health coming in to change the dressings. He comes in today without any specific complaints. There is no pain, fevers or chills. OBJECTIVE: VITAL SIGNS: Temperature 99.1, pulse 82, respirations 18, blood pressure 132/84. The wound itself is located on the right lateral foot and is measuring 0.3 x 0.3 x 0.1 and it is much smaller than last week. There is no undermining noticed. There is minimal callus around the periwound. No sign of an active infection. The wounds on the left foot remain healed. A selective debridement was done of this wound. Tissue removed was just the devitalized callused area. There was minimal bleeding that was controlled with pressure. The instrument utilized was a #15 blade. The patient tolerated the debridement well. Cetacaine spray was used for topical anesthesia. Post-debridement measurements are 0.3 x 0.3 x 0.1. ASSESSMENT AND PLAN: Healing diabetic foot ulcers. We will continue with Bactroban and Puracol, 4 x 4s and a bulky dressing, and will have the patient follow up in the Wound Clinic in 2 weeks from now. The patient does have some peripheral vascular disease. He is status post revascularization. I do not have any of the actual reports and he does have a followup appointment with Vascular later this month. We will continue with the present dressing and continue the felt offloading pad and have him follow up in 2 weeks. STORMY LEARY MD CM:LASHAWN [phone] STORMY LEARY M.D. 05/20/17 1155 interface
== END ==
LOC: WOUNDCARE 03:07
DX: E11.621 Type 2 diabetes mellitus with foot ulcer (principal); L97.512 Non-pressure chronic ulcer of other part of right foot with fat layer exposed; E11.51 Type 2 diabetes mellitus with diabetic peripheral angiopathy without gangrene; L84 Corns and callosities

== ENCOUNTER → 2017-05-22 | Outpatient (CLI) | payer OTHER ==
--- NOTE | ~2017-05-22 | PR ---
[place], [place] PROGRESS NOTE NAME: MARIO ROBERT [facility] #: [id number] UNIT #: [id number] ROOM: DOCTOR: SAPPHIRE DíazSTORMY BIRTHDATE: [birth year] DOS: 05/22/2017 CHIEF COMPLAINT: Followup of diabetic foot ulcer. HISTORY OF PRESENT ILLNESS: This is a 61-year-old male with a history of type 2 diabetes and peripheral vascular disease as well as neuropathy, who has been coming to the Wound Clinic for the past 9 weeks for bilateral diabetic foot ulcers. The wounds on his left foot have healed; however, he has had a wound on the right lateral foot for several weeks now that has been gradually improving and healing. He was to see Dr. Rock for followup for vascular followup. He said he did see him and he is supposed to be scheduled for a repeat angiogram in the near future. He comes in today. He says he thinks the wound is healing nicely. It has not been draining anything and it is not open. Presently, no fevers or chills or pain is noted. He did get his new diabetic shoes, which he is quite happy with and it does help him ambulate, makes him feel more steady on his feet. He ambulated in today without using his walker and he seems to be doing fairly well. He has no other specific complaints. PHYSICAL EXAMINATION: VITAL SIGNS: Temperature 98.2, pulse 84, respirations 18, blood pressure 168/98. The wound is healed on the right lateral foot. There is really no callus present. There is a little bit of dry skin, but overall looks healed. It is completely epithelialized. There is no sign of infection. It is not open. No debridement was done. I did put a [place] offloading pad around it to help keep this area offloaded. I did mention to him also to keep an eye on it closely that he could consider getting some offloading pads [id number] as long as they are not medicated to help protect this area. I did explain to him that it is still fragile and can be easily opened again. I also advised for him to follow up with a automotive collision estimator for his toenails. He has severe onychomycosis and elongated toenails and definitely needs Podiatry to help him with that. In the meantime, we will go ahead and discharge the patient. I did explain to him to follow up with us if necessary. [place], [place] PROGRESS NOTE NAME: [facility] ROBERT [facility] [id number] UNIT #: [id number] ROOM: DOCTOR: STORMY LEARY M.D. BIRTHDATE: [birth year] STORMY LEARY MD CM:LASHAWN [phone] STORMY LEARY M.D. 05/22/17 1122 interface
== END ==
LOC: WOUNDCARE 04:15
DX: E11.621 Type 2 diabetes mellitus with foot ulcer (principal); L97.512 Non-pressure chronic ulcer of other part of right foot with fat layer exposed; E11.51 Type 2 diabetes mellitus with diabetic peripheral angiopathy without gangrene; E11.40 Type 2 diabetes mellitus with diabetic neuropathy, unspecified; L84 Corns and callosities

== ENCOUNTER → 2017-06-13 | Outpatient (CLI) | payer OTHER ==
[2017-06-13 12:28] LABS: BASO # 0.1 10*3/uL (0.0-0.1); BASO % 0.3 % (0.0-1.0); EOS # 0.1 10*3/uL (0.0-0.4); EOS % 0.5 % (1.0-4.0); HEMATOCRIT 27.8 % (42.0-52.0); HEMOGLOBIN 9.3 g/dl (14.0-18.0); LYMPH # 1.5 10*3/uL (1.3-4.4); LYMPH % 8.6 % (27.0-41.0); MEAN CORPUSCULAR HGB 30.1 pg (27.0-31.0); MEAN CORPUSCULAR HGB CONC 33.5 g/dl (33.0-37.0); MEAN PLATELET VOLUME 11.1 fl (9.6-12.3); MONO # 0.8 10*3/uL (0.1-1.0); MONO % 4.5 % (3.0-9.0); NEUT # 14.8 10*3/uL (2.3-7.9); NEUT % 85.5 % (47.0-73.0); PLATELET COUNT AUTOMATED 334 10*3/uL (130-400); RED BLOOD COUNT 3.09 10*6/uL (4.50-5.90); RED CELL DISTRI WIDTH 14.3 % (0-14.5); WHITE BLOOD COUNT 17.3 10*3/uL (4.8-10.8)
[2017-06-13 12:40] LABS: BUN 11 mg/dl (7-24); CHLORIDE 104 mmol/L (98-107); CREATININE 1.04 mg/dL (0.70-1.30); POTASSIUM 3.8 mmol/L (3.5-5.1); SODIUM 140 mmol/L (136-145)
== END | disposition home or self-care (01) ==
LOC: LAB 11:58 → US 06-21 12:30
PROVIDERS: Surgery Vascular Surgery
DX: I73.9 Peripheral vascular disease, unspecified (principal); S30.1XXA Contusion of abdominal wall, initial encounter; R53.83 Other fatigue; I72.9 Aneurysm of unspecified site; X58.XXXA Exposure to other specified factors, initial encounter; Y93.89 Activity, other specified; Y92.89 Other specified places as the place of occurrence of the external cause; Y99.8 Other external cause status

== ENCOUNTER 2018-08-13 16:57 | Emergency (ER) | payer OTHER ==
[~2018-08-13] VITALS: Ht 180.3 cm; Wt 83.9 kg
--- NOTE | ~2018-08-13 | EKG ---
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
[2018-08-13 19:01] LABS: HEMATOCRIT 43.2 % (42.0-52.0); HEMOGLOBIN 14.7 g/dl (14.0-18.0); MEAN CELL VOLUME 88.9 fl (80.0-94.0); MEAN CORPUSCULAR HGB 30.2 pg (27.0-31.0); MEAN PLATELET VOLUME 11.2 fl (9.6-12.3); PLATELET COUNT AUTOMATED 190 10*3/uL (130-400); RED BLOOD COUNT 4.86 10*6/uL (4.50-5.90); RED CELL DISTRI WIDTH 12.5 % (0-14.5)
[2018-08-13 19:21] LABS: ALBUMIN 3.4 gm/dl (3.1-4.5); ALKALINE PHOSPHATASE 85 U/L (45-117); BUN 6 mg/dl (7-24); CHLORIDE 106 mmol/L (98-107); CREATININE 1.09 mg/dL (0.70-1.30); POTASSIUM 3.6 mmol/L (3.5-5.1); SGOT/AST 13 IU/L (3-35); SGPT/ALT 16 U/L (12-78); SODIUM 138 mmol/L (136-145); TOTAL PROTEIN 7.2 gm/dL (6.4-8.2); TROPONIN I 0.031 ng/ml (<0.045)
[2018-08-13 19:23] LABS: PLATELET SUFFICIENCY NORMAL (NORMAL); TOTAL CELLS COUNTED 100 #CELLS
[2018-08-13 19:24] LABS: BURR CELLS FEW
[2018-08-13 19:28] LABS: ETHYL ALCOHOL < 3.0 mg/dl (<3)
== END 2018-08-13 22:43 | disposition short-term general hospital (02) ==
LOC: ED 16:57
PROVIDERS: Physician Assistant
DX: R41.82 Altered mental status, unspecified (principal); E11.9 Type 2 diabetes mellitus without complications; I10 Essential (primary) hypertension; Z79.82 Long term (current) use of aspirin; Z79.899 Other long term (current) drug therapy

== ENCOUNTER 2020-10-03 01:40 | Inpatient (IN) | payer MEDICARE ==
[2020-10-03] VITALS (40 sets, daily range): BP systolic 60–197; BP diastolic 0–124
[~2020-10-03] VITALS: Ht 177.8 cm; Wt 76.0 kg
--- NOTE | 2020-10-03 02:10 | NUR ---
INTUBATED AT THIS TIME WITH SIZE 8 TUBE, 23 AT THE LIP. TOLERATED WELL. PATIENT SEDATED WITH 20MG ETOMADATE IV AT THIS TIME AND 40MG PROPOFOL. RESPIRATORY AND DR FAY AT BEDSIDE.
[2020-10-03 02:13] LABS: HEMATOCRIT 51.3 % (42.0-52.0); MEAN CELL VOLUME 90.8 fl (80.0-94.0); PLATELET COUNT AUTOMATED 406 10*3/uL (130-400); RED BLOOD COUNT 5.65 10*6/uL (4.50-5.90); RED CELL DISTRI WIDTH 12.7 % (0-14.5); WHITE BLOOD COUNT 16.4 10*3/uL (4.8-10.8)
[2020-10-03 02:30] LABS: ALBUMIN 3.6 gm/dl (3.1-4.5); ALKALINE PHOSPHATASE 90 U/L (45-117); BUN 12 mg/dl (7-24); CHLORIDE 106 mmol/L (98-107); CREATININE 1.39 mg/dL (0.70-1.30); POTASSIUM 3.2 mmol/L (3.5-5.1); SGOT/AST 17 IU/L (3-35); SGPT/ALT 19 U/L (12-78); SODIUM 138 mmol/L (136-145); TOTAL PROTEIN 8.3 gm/dL (6.4-8.2)
[2020-10-03 02:33] LABS: TROPONIN I 0.455 ng/ml (<0.045)
[2020-10-03 02:37] LABS: ATYPICAL LYMPHS 4 % (0-0); PLATELET SUFFICIENCY NORMAL (NORMAL); TOTAL CELLS COUNTED 100 #CELLS
--- NOTE | 2020-10-03 02:55 | NUR ---
TOLERATING VENT WELL AT THIS TIME. NO DISTRESS NOTED. VSS. PROPOFOL RUNNING AT 5MCG/HR.
--- NOTE | 2020-10-03 04:39 | NUR ---
PT INTUBATED BY ME IN ER BED [address] FAY AT BEDSIDE. BBS PRESENT AND EQUAL, +ETOC2. VISUALIZED TUBE PASSING THROUGH CORDS. PLACED ON VENT WITH ALARMS ON AND AUDIBLE. NO COMPS.
[2020-10-03 04:49] LABS: ALBUMIN 3.1 gm/dl (3.1-4.5); ALKALINE PHOSPHATASE 76 U/L (45-117); BUN 14 mg/dl (7-24); CHLORIDE 107 mmol/L (98-107); CHOLESTEROL 199 mg/dL (<200); CREATININE 1.24 mg/dL (0.70-1.30); HDL CHOLESTEROL 40 mg/dl (40-60); LDL CHOLESTEROL 133 mg/dL (9-159); POTASSIUM 3.9 mmol/L (3.5-5.1); SGOT/AST 18 IU/L (3-35); SGPT/ALT 18 U/L (12-78); SODIUM 137 mmol/L (136-145); TOTAL PROTEIN 6.9 gm/dL (6.4-8.2); TRIGLYCERIDES 131 mg/dl (<150); VLDL CHOLESTEROL 26 mg/dL (6-40)
[2020-10-03 04:50] LABS: FREE T4 1.53 ng/dl (0.76-1.46)
[2020-10-03 05:35] LABS: ABG BASE EXCESS -1.6 mmol/L (-2.0-2.0); ARTERIAL BLOOD GAS PH 7.398 (7.35-7.45)
--- NOTE | 2020-10-03 05:41 | NUR ---
DR. MCFARLAND CALLED WITH ABG RESULTS, NO FURTHER ORDERS AT THIS TIME.
--- NOTE | 2020-10-03 05:46 | NUR ---
DR MCFARLAND AND DR VALDEZ BOTH CONSULTS WERE CALLED. NO ORDERS GIVEN.
[2020-10-03 05:55] LABS: BILIRUBIN Negative (Negative); BLOOD 1+ (Negative); CLARITY Cloudy (Clear); COLOR Yellow (Yellow); GLUCOSE 3+ (Negative); KETONE Trace (Negative); LEUKO ESTERASE 1+ (Negative); NITRITE Positive (Negative)
[2020-10-03 06:02] LABS: BACTERIA 2+; WBC 21-30 wbc/hpf (0-5)
--- NOTE | 2020-10-03 07:10 | NUR ---
NURSE REPORT ACCEPTED FOR CONTINUATION OF CARE. VITALS STABLE. PT SEDATED W/ PROPOFOL DOSING INFUSING. VENT DISPLAYS NO ERROR OR ALARMS. ADMISSION TO ICU PENDING.
--- NOTE | 2020-10-03 08:00 | NUR ---
RAPID COVID RESULT NEGATIVE, SEND OUT COVID "PENDING". PT'S ADMISSION DIAGNOSIS MENTION NOTHING ABOUT COVID AND HIS ISOLATION PRECAUTION ORDERS ARE "STAND", NOT NEGATIVE ISOLATION.
--- NOTE | 2020-10-03 08:05 | NUR ---
RESTRAINTS PLACED BOTH WRISTS. PT PULLING AT MONITORING DEVICES, PROPOFOL SEDATION TITRATED TO 35/HR FROM 25, VITALS STABLE AND WITHIN NORMAL LIMITS.
[2020-10-03 08:22] LABS: BASO # 0.1 10*3/uL (0.0-0.1); BASO % 0.4 % (0.0-1.0); EOS % 0.1 % (1.0-4.0); LYMPH # 1.6 10*3/uL (1.3-4.4); LYMPH % 8.2 % (27.0-41.0); MEAN CELL VOLUME 88.8 fl (80.0-94.0); MEAN CORPUSCULAR HGB 29.3 pg (27.0-31.0); MEAN PLATELET VOLUME 11.8 fl (9.6-12.3); MONO # 1.3 10*3/uL (0.1-1.0); MONO % 6.4 % (3.0-9.0); NEUT # 16.8 10*3/uL (2.3-7.9); NEUT % 84.4 % (47.0-73.0); PLATELET COUNT AUTOMATED 302 10*3/uL (130-400); RED BLOOD COUNT 4.84 10*6/uL (4.50-5.90); RED CELL DISTRI WIDTH 12.8 % (0-14.5); WHITE BLOOD COUNT 19.9 10*3/uL (4.8-10.8)
--- NOTE | 2020-10-03 08:36 | NUR ---
INSULIN DOSES HELD BECAUSE THEY ARE ORDERS FOR BEFORE MEALS AND PT IS INTUBATED AND NOT EATING.
--- NOTE | 2020-10-03 08:40 | NUR ---
BLOOD PRESSURE STABLE SINCE TITRATION OF PROPOFOL.
--- NOTE | 2020-10-03 08:46 | NUR ---
TROPONIN AT 2.13 NOW CALLED FROM LAB IS CALLED TO DR ESCOBEDO. PREVIOUS LEVELS AT 0.45 AND 0.63.
--- NOTE | 2020-10-03 09:05 | NUR ---
#22 HEPLOCK RIGHT HAND DISLODGED DURING CARE. PRESSURE APPLIED, NO ACTIVE BLEEDING.
--- NOTE | 2020-10-03 09:37 | NUR ---
FULL BED CHANGE FOR INCONTINENCE OF STOOL AND COPIOUS SETTLED BLOOD FROM FEMORAL LINE INSERTION. PROPOFOL SEDATION WORKING WELL NOW AFTER TITRATION TO 35MIC.
[2020-10-03 09:42] LABS: VITAMIN D, 25-HYDROXY 10.4 ng/mL (30-100)
--- NOTE | 2020-10-03 11:26 | NUR ---
A 65, admitted to ICCU, under the services of CAREY Arellano DO with a diagnosis of CHF, RESP FAILURE. Chief complaint is SOB FOR DAYS. Patient arrived via stretcher from ER. Monitor applied. Initial assessment completed. Vital signs taken and recorded. CAREY ARELLANO DO notified of admission to the unit. Orders received. See assessment for past medical history, medications and allergies. Patient and/or family oriented to unit. [facility] ICCU visitation policy reviewed. Clothing/patient valuable form completed. REBECCA MINOR
--- NOTE | 2020-10-03 13:00 | NUR ---
Isaias BRACHAIL ART LINE PLACED BY NETO
[2020-10-03 13:15] LABS: CREATININE 1.45 mg/dL (0.70-1.30); POTASSIUM 3.8 mmol/L (3.5-5.1)
--- NOTE | 2020-10-03 16:11 | NUR ---
PHYSICAL THERAPY Nursing screen received. Patient is currently intubated and unable to participate in skilled PT evaluation. If decline in functional mobility presents, recommend skilled PT evaluation when medically appropriate. Thank you. Katie Baxter,PT,DPT
--- NOTE | 2020-10-03 18:40 | NUR ---
PTT 84.6 DRIP OFF 5-6 PM RESUMED AT 700 UNITS/HR PTT FOR MIDNIGHT
--- NOTE | 2020-10-03 19:19 | NUR ---
24 HR chart check completed.
--- NOTE | 2020-10-03 20:40 | NUR ---
PT AWAKE AND AGITATED AND TRYING TO REMOVE ENDO TUBE FROM MOUTH. BP STABLE AT 140/70. DIPRIVAN INCREASED TO 20CC/H WHICH KEPT MAP AT 82 IA >. PT IS NOW RESTING PEACEFULLY.
[2020-10-04] VITALS (27 sets, daily range): BP systolic 74–164; BP diastolic 47–84
--- NOTE | 2020-10-04 01:30 | NUR ---
APTT REORDERED FOR 0730AM
--- NOTE | 2020-10-04 01:30 | NUR ---
APTT REORDERED FOR 0730AM
--- NOTE | 2020-10-04 01:31 | NUR ---
24 HR chart check completed.
--- NOTE | 2020-10-04 04:43 | NUR ---
COMPLETE BEDBATH DONE. CLIENT AWAKE AND ATTEMPTING TO INTERACT WITH STAFF DURING BATH. MASSIVE AMOUNT GRUNGE STUCK TO TOES AND BOTTOM OF FEET DURING BATH. NAILS THICK AND BENDING DOWN OVER TOP OF TOE TO BOTTOM. ORAL CARE DONE. SUCTIONED FOR MINIMAL SECRETIONS. REPOSITIONED FOR COMFORT. HOB UP TOLERATED.
[2020-10-04 06:13] LABS: ALBUMIN 3.1 gm/dl (3.1-4.5); CREATININE 1.6 mg/dL (0.70-1.30); POTASSIUM 3.6 mmol/L (3.5-5.1)
[2020-10-04 06:26] LABS: HEMATOCRIT 42.3 % (42.0-52.0); LYMPH # 1.1 10*3/uL (1.3-4.4); MEAN CORPUSCULAR HGB 28.9 pg (27.0-31.0); MEAN CORPUSCULAR HGB CONC 32.2 g/dl (33.0-37.0); MEAN PLATELET VOLUME 12.6 fl (9.6-12.3); MONO # 1.1 10*3/uL (0.1-1.0); MONO % 5.2 % (3.0-9.0); NEUT # 19.3 10*3/uL (2.3-7.9); NEUT % 89.2 % (47.0-73.0); PLATELET COUNT AUTOMATED 280 10*3/uL (130-400); RED CELL DISTRI WIDTH 13.2 % (0-14.5); WHITE BLOOD COUNT 21.6 10*3/uL (4.8-10.8)
--- NOTE | 2020-10-04 07:01 | NUR ---
EXTREME ANXIETY AFTER CHEST XRAY TRYING TO CHEW TUBE AND REACHING FOR IT. REDIRECTION AND EMOTIONAL SUPPORT PROVIDED. DIPROVAN INCREASED TO 20MCG
[2020-10-04 07:46] LABS: ABG BASE EXCESS -3.5 mmol/L (-2.0-2.0); ARTERIAL BLOOD GAS PH 7.441 (7.35-7.45)
--- NOTE | 2020-10-04 08:44 | NUR ---
Awake and alert. Propofol to off. @ 0815 . OGT secure placement verification w/ air bolus, ETT secure to vent, Oral mucosa moist, oral care was given. Cough and gag are intact. 0815 Reaching up attempting to pull ETT , re-oriented w/o success. Propofol resumed at 30 mcg, 15.3 cc/h. BP remains stable and levophed remains off.
--- NOTE | 2020-10-04 09:12 | NUR ---
SPEECH PATHOLOGY Nursing screen complete. Pt currently intubated. No speech therapy evaluation recommended at this time. This department available for evaluation if/when medically necessary. Honey Delvalle M.A. BRUCE-CHEF INSTRUCTOR
--- NOTE | 2020-10-04 09:12 | NUR ---
COVID pending. Patient intubated. Discharge plan undecided. CM will continue to follow for any discharge planning needs.
--- NOTE | 2020-10-04 09:43 | NUR ---
0900 Hypotensive , Levophed re-started.
[2020-10-04 16:21] LABS: ABG BASE EXCESS -2.9 mmol/L (-2.0-2.0); ARTERIAL BLOOD GAS PH 7.429 (7.35-7.45)
--- NOTE | 2020-10-04 17:00 | NUR ---
PATIENT EXTUBATED AND PLACED ON A 2 L/M NASAL CANNULA. PULSE OX 99%.
--- NOTE | 2020-10-04 17:52 | NUR ---
1230 pROPOFOL TO OFF. 1255 TO C-pAP 1700 aBG DRAWN RESULTED AND CALLED to Dr. Rodriguez , pt. extubated per RT to 2l NC. Levophed off . Pt. is awake and alert currently. Tolerating extubation well.
--- NOTE | 2020-10-04 22:23 | NUR ---
UNRECEPTIVE TO PT EDUCATION. ENCOURAGED TO INCREASE PO FLUIDS. DECLINED PM ORAL CARE. SITTING UP WATCHING TV. APPEARS RELAXED. NO RESP DISTRESS ON 2L. STATES MUSCLES SHAKING SINCE GETTING OFF OF VENT. WILL CONTINUE TO MONITOR AND ATTEMPT TO PROVIDE MORE PT EDUCATION
[2020-10-05] VITALS: BP 102/56
--- NOTE | 2020-10-05 00:41 | NUR ---
REFUSES TO TURN FULL SIDE TO SIDE. IMPORTANCE EXPLAINED BUT STILL REFUSES. TRYING TO CHANGE PRESSURE POINTS BY MOVING HOB. WILL CONTINUE TO ENCOURAGE.
--- NOTE | 2020-10-05 02:50 | NUR ---
24 HR chart check completed.
[2020-10-05 04:00] VITALS: BP 96/87
[2020-10-05 05:59] LABS: ALBUMIN 2.8 gm/dl (3.1-4.5); BUN 19 mg/dl (7-24); CHLORIDE 109 mmol/L (98-107); CREATININE 1.34 mg/dL (0.70-1.30); POTASSIUM 3.4 mmol/L (3.5-5.1); SGOT/AST 16 IU/L (3-35); SGPT/ALT 10 U/L (12-78); SODIUM 140 mmol/L (136-145); TOTAL PROTEIN 6.4 gm/dL (6.4-8.2)
[2020-10-05 06:03] LABS: ALKALINE PHOSPHATASE 61 U/L (45-117); LDH 191 U/L (87-241)
[2020-10-05 06:05] LABS: CPK 134 U/L (39-308)
[2020-10-05 06:16] LABS: BASO # 0.1 10*3/uL (0.0-0.1); BASO % 0.4 % (0.0-1.0); EOS % 0.1 % (1.0-4.0); HEMATOCRIT 35.2 % (42.0-52.0); LYMPH # 1.9 10*3/uL (1.3-4.4); LYMPH % 11.2 % (27.0-41.0); MEAN CELL VOLUME 89.8 fl (80.0-94.0); MEAN CORPUSCULAR HGB 29.1 pg (27.0-31.0); MEAN CORPUSCULAR HGB CONC 32.4 g/dl (33.0-37.0); MONO # 1.5 10*3/uL (0.1-1.0); MONO % 8.6 % (3.0-9.0); NEUT # 13.5 10*3/uL (2.3-7.9); NEUT % 79.4 % (47.0-73.0); PLATELET COUNT AUTOMATED 210 10*3/uL (130-400); RED BLOOD COUNT 3.92 10*6/uL (4.50-5.90); RED CELL DISTRI WIDTH 13.7 % (0-14.5)
[2020-10-05 06:25] LABS: ACT PARTIAL THROMBO TIME 52.4 SECONDS (20.0-32.1)
[2020-10-05 08:00] VITALS: BP 92/55
--- NOTE | 2020-10-05 10:28 | NUR ---
Awake and alert No c/o today . took small amt breakfast.
[2020-10-05 12:00] VITALS: BP 109/58
[2020-10-05 16:00] VITALS: BP 111/63
[2020-10-05 20:00] VITALS: BP 98/53
[2020-10-06] VITALS (10 sets, daily range): BP systolic 112–132; BP diastolic 65–84
[2020-10-06 05:54] LABS: ALBUMIN 2.9 gm/dl (3.1-4.5); ALKALINE PHOSPHATASE 60 U/L (45-117); BUN 12 mg/dl (7-24); CHLORIDE 110 mmol/L (98-107); CREATININE 1.18 mg/dL (0.70-1.30); LDH 254 U/L (87-241); POTASSIUM 3.3 mmol/L (3.5-5.1); SGOT/AST 31 IU/L (3-35); SGPT/ALT 13 U/L (12-78); SODIUM 139 mmol/L (136-145); TOTAL PROTEIN 6.6 gm/dL (6.4-8.2)
[2020-10-06 06:01] LABS: CPK 197 U/L (39-308)
[2020-10-06 06:41] LABS: BASO # 0.1 10*3/uL (0.0-0.1); EOS # 0.2 10*3/uL (0.0-0.4); EOS % 1.4 % (1.0-4.0); LYMPH % 14.3 % (27.0-41.0); MEAN CELL VOLUME 91.1 fl (80.0-94.0); MEAN CORPUSCULAR HGB CONC 31.8 g/dl (33.0-37.0); MEAN PLATELET VOLUME 12.9 fl (9.6-12.3); MONO # 1.3 10*3/uL (0.1-1.0); MONO % 9.7 % (3.0-9.0); NEUT % 72.9 % (47.0-73.0); PLATELET COUNT AUTOMATED 215 10*3/uL (130-400); RED BLOOD COUNT 4.17 10*6/uL (4.50-5.90); RED CELL DISTRI WIDTH 13.4 % (0-14.5); WHITE BLOOD COUNT 13.8 10*3/uL (4.8-10.8)
[2020-10-06 07:09] LABS: ACT PARTIAL THROMBO TIME 42.9 SECONDS (20.0-32.1)
--- NOTE | 2020-10-06 10:30 | NUR ---
Commercial Loan Assistant in to talk to patient. Patient states lives at home alone with his 2 brothers checking in on him. There are 0 steps in the home. There are 5 front steps and 2 back steps. Physician: Dr. Abdi Esquivel Pharmacy: [facility] services: none Patient's level of ADLs: INDEPENDENT Patient has working utilities: yes DME: cane, rollator, wheelchair Follow-up physician's appointment after d/c: will be made by the hospitalist nurse director upon discharge Does patient want to access PORTAL?: no Discharge plan discussed with patient. He lives at home alone with his 2 brother checking in on him. He states his brother, Vladislav, will drive him to wherever he needs to go or he will take a taxi. He states he has no problems cooking food but does normally order from [employer]. He states he is independent in his ADLs and ambulation but does have a cane, rollator, and wheelchair if needed. Discussed short term rehab and home health care services and he declines. He states he doesn't want anything else medically done and if it is his time then it is his time and he is ready. When medically stable he will be discharged to home. He states his brother, Vladislav, will provide transportation on discharge. SUKH HICKMAN
--- NOTE | 2020-10-06 11:02 | NUR ---
Received hospice order for patient to go home with hospice. Several hospice agencies called and they are unable to accept patients today. [facility] Faxed order and referral. [facility] will contact nurse to come and discuss options with patient.
[2020-10-06 12:20] LABS: BILIRUBIN Negative (Negative); BLOOD Trace-Lysed (Negative); CLARITY Cloudy (Clear); COLOR Yellow (Yellow); GLUCOSE Trace (Negative); KETONE Trace (Negative); LEUKO ESTERASE Negative (Negative); NITRITE Negative (Negative); UROBILINOGEN 0.2 E.U./dl (0.0-1.0)
[2020-10-06 12:29] LABS: MUCOUS TRACE
--- NOTE | 2020-10-06 12:35 | NUR ---
[facility] nurse Ale will be in to discuss home options with patient between 3:30 and 4[address] [facility] notified.
--- NOTE | 2020-10-06 17:18 | NUR ---
[facility] HERE AND RECOMMENDS MAKING MEDSURG, TAKING OFF THE DRIPS AND SEEING IF PATIENT CAN GET OUT OF BED AND CARE FOR HIMSELF. HOSPICE WILL COME AND RE-EVALUATE TOMORROW.
--- NOTE | 2020-10-06 22:24 | NUR ---
PATIENT HAVING COMPLAINTS OF NAUSEA AND HAD ONE EMESIS AT THIS TIME. PATIENT WAS THEN GIVEN ZOFRAN. WILL CONTINUE TO MONITOR.
[2020-10-07] VITALS: BP 122/73
--- NOTE | 2020-10-07 05:45 | NUR ---
PATIENT HAS SLEPT ALL NIGHT. ZOFRAN THAT WAS GIVEN WAS EFFECTIVE AND PATIENT HAS HAD NO COMPLAINTS OF NAUSEA OR VOMITING.
[2020-10-07 06:15] LABS: ALBUMIN 2.7 gm/dl (3.1-4.5); BUN 16 mg/dl (7-24); CHLORIDE 110 mmol/L (98-107); CREATININE 1.16 mg/dL (0.70-1.30); LDH 261 U/L (87-241); SGOT/AST 19 IU/L (3-35); SGPT/ALT 12 U/L (12-78); SODIUM 139 mmol/L (136-145); TOTAL PROTEIN 6.7 gm/dL (6.4-8.2)
[2020-10-07 06:16] LABS: ALKALINE PHOSPHATASE 60 U/L (45-117)
[2020-10-07 06:17] LABS: BASO # 0.1 10*3/uL (0.0-0.1); EOS # 0.2 10*3/uL (0.0-0.4); EOS % 1.4 % (1.0-4.0); HEMATOCRIT 36.6 % (42.0-52.0); LYMPH # 1.6 10*3/uL (1.3-4.4); LYMPH % 12.4 % (27.0-41.0); MEAN CELL VOLUME 92.9 fl (80.0-94.0); MEAN CORPUSCULAR HGB 29.4 pg (27.0-31.0); MEAN CORPUSCULAR HGB CONC 31.7 g/dl (33.0-37.0); MONO # 0.8 10*3/uL (0.1-1.0); MONO % 6.7 % (3.0-9.0); NEUT # 9.8 10*3/uL (2.3-7.9); NEUT % 77.7 % (47.0-73.0); PLATELET COUNT AUTOMATED 242 10*3/uL (130-400); RED BLOOD COUNT 3.94 10*6/uL (4.50-5.90); RED CELL DISTRI WIDTH 13.3 % (0-14.5); WHITE BLOOD COUNT 12.6 10*3/uL (4.8-10.8)
[2020-10-07 06:17] LABS: CPK 126 U/L (39-308)
--- NOTE | 2020-10-07 07:16 | NUR ---
[facility] stated the following: Met with brandon to discuss hospice services. Patient already a DNRCC and wants to go home with hospice. He states he is not sure if he can care for himself at home and says moving in with his brothers or family are not options. Spoke with Dr. Gallegos and Dr. Son - Plan is to wean off heparin and dabutamine drip josseline and mariza and see if patient can do ADL's overnight. Hopsice to re-evaluate tomorrow 10/07/2020. Patient is not GIP appropriate.
[2020-10-07 08:00] VITALS: BP 113/71
[2020-10-07 12:00] VITALS: BP 110/60
--- NOTE | 2020-10-07 12:13 | NUR ---
PHYSICAL THERAPY Physical Therapy evaluation completed on [facility]U with full evaluation to follow. Moderate complexity skilled PT evaluation per chart review and evaluation, 20861. Recommend physical therapy per plan of care and SNF upon discharge. Thank you for this referral. Katie Baxter,PT,DPT
--- NOTE | 2020-10-07 12:14 | NUR ---
REFUSES BLOOD SUGAR CHECK
--- NOTE | 2020-10-07 13:39 | NUR ---
SALES SUPERINTENDENT REACHED OUT TO [facility]. SALES SUPERINTENDENT EXPLAINED PATIENT WORKED WITH PT. TEA VILLANUEVA AN RN FROM THEIR AGENCY IS ON HER WAY TO SEE THE PATIENT. SALES SUPERINTENDENT CALLED AND SPOKE WITH DR. MADERA. HE IS AWARE.
[2020-10-07] MEDS ORDERED: LISINOPRIL5 MG PO (14:28)
[2020-10-07] MEDS ORDERED: CLOPIDOGREL75 MG PO (14:28)
--- NOTE | 2020-10-07 15:00 | NUR ---
PT REFUSED DC PICTURES
--- NOTE | 2020-10-07 15:18 | NUR ---
NETWORKING TECHNICIAN NOTIFIED OF THE PATIENT NEEDING TRANSPORATION HOME. NETWORKING TECHNICIAN SPOKE WITH [employer] AND ARRANGED FOR TRANSPORTATION IN 20MINS. NETWORKING TECHNICIAN NOTIFIED [employer] OF TRANSPORT TIME X2011 WAS NOT ANSWERED. NETWORKING TECHNICIAN CONTACTED PATIENTS BROTHER NAVEED TO EXPLAIN DISCHARGE/TRANSPORTATION. HE STATED HE WAS UNAWARE OF HIS BROTHER BEING IN THIS FACILITY UNTIL YESTERDAY. HE STATED HE WAS NEVER NOTIFIED HE WAS IN THIS FACILITY AND HE IS THE EMERGENCY CONTACT. NETWORKING TECHNICIAN APOLOGIZED FOR HIM NOT BEING NOTIFIED. HE STATED HE WOULD MEET HIS BROTHER AT HOME.
--- NOTE | 2020-10-07 15:42 | NUR ---
DC TO HOME VIA AMBULANCE HOME CARE INSTRUCTIONS GIVEN TOPT AND HE VERBALIZED UNDERSTANDING HOSPICE NURSE DOROTA HERE AND WILL MEET PT AT HOME
== END 2020-10-07 15:42 | disposition hospice, home (50) | DRG 871 ==
LOC: ED 01:40 → EDHOLD 04:06 → ICCU 04:06
PROVIDERS: Emergency Medicine; Internal Medicine Critical Care Medicine; Student in an Organized Health Care Education/Training Program; ADMIT Internal Medicine; ATTEND Internal Medicine
PROC: 0BH17EZ Insertion of Endotracheal Airway into Trachea, Via Natural or Artificial Opening (ICD-10-PCS; principal; 2020-10-03)
PROC: 5A1945Z Respiratory Ventilation, 24-96 Consecutive Hours (ICD-10-PCS; 2020-10-03)
PROC: 06HM33Z Insertion of Infusion Device into Right Femoral Vein, Percutaneous Approach (ICD-10-PCS; 2020-10-03)
PROC: 03HY32Z Insertion of Monitoring Device into Upper Artery, Percutaneous Approach (ICD-10-PCS; 2020-10-03)
PROC: 4A133B1 Monitoring of Arterial Pressure, Peripheral, Percutaneous Approach (ICD-10-PCS; 2020-10-03)
PROC: 4A133J1 Monitoring of Arterial Pulse, Peripheral, Percutaneous Approach (ICD-10-PCS; 2020-10-03)
DX: A41.9 Sepsis, unspecified organism (principal); J96.01 Acute respiratory failure with hypoxia; R65.21 Severe sepsis with septic shock; J18.9 Pneumonia, unspecified organism; I21.4 Non-ST elevation (NSTEMI) myocardial infarction; E43 Unspecified severe protein-calorie malnutrition; R57.0 Cardiogenic shock; N17.9 Acute kidney failure, unspecified; I16.1 Hypertensive emergency; I42.9 Cardiomyopathy, unspecified; N39.0 Urinary tract infection, site not specified; R65.20 Severe sepsis without septic shock; K21.9 Gastro-esophageal reflux disease without esophagitis; M19.90 Unspecified osteoarthritis, unspecified site; E11.51 Type 2 diabetes mellitus with diabetic peripheral angiopathy without gangrene; E11.65 Type 2 diabetes mellitus with hyperglycemia; E11.69 Type 2 diabetes mellitus with other specified complication; L08.9 Local infection of the skin and subcutaneous tissue, unspecified; E55.9 Vitamin D deficiency, unspecified; E53.8 Deficiency of other specified B group vitamins; I11.0 Hypertensive heart disease with heart failure; B95.7 Other staphylococcus as the cause of diseases classified elsewhere; I50.9 Heart failure, unspecified; D64.9 Anemia, unspecified; E87.6 Hypokalemia; Z66 Do not resuscitate; Z79.4 Long term (current) use of insulin; Z83.3 Family history of diabetes mellitus; Z82.49 Family history of ischemic heart disease and other diseases of the circulatory system; Z79.82 Long term (current) use of aspirin; Z79.899 Other long term (current) drug therapy; Z68.24 Body mass index [BMI] 24.0-24.9, adult; Z20.828 Contact with and (suspected) exposure to other viral communicable diseases